=== PATIENT | female | born 1980 | race American Indian/Alaskan Native ===

== ENCOUNTER 2018-08-31 01:47 | Inpatient (IN) | payer BC ==
[~2018-08-31 01:47] MED LIST: HEPARIN 10,000 UNITS/10 ML ONE; PLAVIX ONE
[2018-08-31] MEDS ORDERED: PLAVIX PO ONE ×2 (02:02→02:04)
[2018-08-31] MEDS ORDERED: HEPARIN 10,000 UNITS/10 ML IV ONE (02:02)
--- NOTE | 2018-08-31 02:02 | Emergency Department Report ---
ED Chest Pain HPI - General Stated Complaint: CHEST PAIN Time Seen by Provider: 08/31/18 01:47 Source: patient, EMS Mode of arrival: Stretcher Limitations: No Limitations - History of Present Illness Initial Comments: Patient is a 38-year-old female that presents with complaints of chest pain. Patient states her chest is 10. Patient states he is now a 5 out of 10. Patient states she was given morphine and she took aspirin at home prior to EMS arriving. States her pain is improving. Patient states she's had 2 heart attacks in the past along with 3 stents placed. Patient states with her first heart attack she had a cardiac arrest. Patient states she was having shortness of breath diaphoresis and nausea vomiting. Patient states her chest pain was better with rest and medications and worse with exertion. STEMI team initiated prior to arrival. MD Complaint: chest pain -: Sudden Onset: during rest Pain Location: substernal, left chest Pain Radiation: none Severity scale (0 -10): 5 Improves With: rest, other Worsens With: exertion re: nausea, vomting, diaphoresis, dyspnea Other Symptoms: denies: cough, fever, syncope, rash, acid taste in mouth, leg swelling, palpitations, burping Treatments Prior to Arrival: aspirin, oxygen, other Aspirin use within the Past 7 Days: (1) Yes - Related Data On Oral Contraceptives: No Allergies Allergy/AdvReac Type Severity Reaction Status Date / Time amoxicillin Allergy Unknown Verified 08/31/18 02:16 antihistamine Allergy Shortness Uncoded 08/31/18 02:16 of Breath Heart Score - HEART Score History: Highly suspicious EKG: Significant ST-depression Age: 45-65 Risk factors: > 3 risk factors or hx of atherosclerotic disease Troponin: < normal limit HEART Score: 7 ED Review of Systems ROS: Stated complaint: CHEST PAIN Other details as noted in HPI Constitutional: diaphoresis. denies: chills, fever Eyes: denies: eye pain, eye discharge, vision change ENT: denies: ear pain, throat pain Respiratory: shortness of breath. denies: cough, wheezing Cardiovascular: chest pain. denies: palpitations Endocrine: no symptoms reported Gastrointestinal: nausea, vomiting. denies: abdominal pain, diarrhea Genitourinary: denies: urgency, dysuria, discharge Musculoskeletal: denies: back pain, joint swelling, arthralgia Skin: denies: rash, lesions Neurological: denies: headache, weakness, paresthesias Psychiatric: denies: anxiety, depression Hematological/Lymphatic: denies: easy bleeding, easy bruising ED Past Medical Hx - Past Medical History Previous Medical History?: Yes Hx Heart Attack/AMI: Yes Additional medical history: Cardiac arrest with first MN. - Surgical History Past Surgical History?: Yes Hx Coronary Stent: Yes - Family History Family history: no significant - Social History Smoking Status: Never Smoker Substance Use Type: None ED Physical Exam - General Limitations: No Limitations General appearance: alert, in no apparent distress - Head Head exam: Present: atraumatic, normocephalic - Eye Eye exam: Present: normal appearance - ENT ENT exam: Present: mucous membranes moist - Neck Neck exam: Present: normal inspection - Respiratory Respiratory exam: Present: normal lung sounds bilaterally. Absent: respiratory distress - Cardiovascular Cardiovascular Exam: Present: regular rate, normal rhythm. Absent: systolic murmur, diastolic murmur, rubs, gallop - GI/Abdominal GI/Abdominal exam: Present: soft, normal bowel sounds - Extremities Exam Extremities exam: Present: normal inspection - Back Exam Back exam: Present: normal inspection - Neurological Exam Neurological exam: Present: alert, oriented X3 - Psychiatric Psychiatric exam: Present: normal affect, normal mood - Skin Skin exam: Present: warm, dry, intact, normal color. Absent: rash ED Course Vital Signs 08/31/18 08/31/18 02:05 02:15 Pulse Rate 80 91 H Respiratory 14 14 Rate Blood Pressure 119/87 Blood Pressure 115/79 [Left] - Reevaluation(s) Reevaluation #1: Initial evaluation done. Code STEMI initiated prior to arrival and credit correspondence clerk consult. Patient's pain has improved with therapy. Patient will be given Plavix, Lipitor and heparin bolus. Patient was placed on oxygen. Patient lab labs done. 08/31/18 01:47 Reevaluation #2: Patient states her pain is 3 out of 10. 08/31/18 02:05 Reevaluation #3: Body Technician was ready and will take the patient. Patient was transported via stretcher to the Body Technician. Patient's chest pain is improving. 08/31/18 02:21 - Consultations Consultation #1: Dr. Quarles, interventional cardiology consult. EKG transmitted to Dr. Quarles via text. Dr. Quarles states to initiate STEMI team. 08/31/18 01:44 Cardiology wants to have 600 of Plavix and 6000 units of heparin bolus 08/31/18 01:55 Consultation #2: Hospitalist consult for admission. Hospitalist to admit patient and assume care of patient. 08/31/18 01:58 CONNOR score - Connor Score Age > 65: (0) No Aspirin use within the Past 7 Days: (1) Yes 3 or more CAD Risk Factors: (1) Yes 2 or more Angina events in past 24 hrs: (0) No Known CAD with more than 50% Stenosis: (0) No Elevated Cardiac Markers: (0) No ST Deviation Greater than 0.5mm: (1) Yes CONNOR Score: 3 ED Medical Decision Making - Lab Data Result diagrams: 08/31/18 01:55 08/31/18 01:55 - EKG Data -: EKG Interpreted by Ak EKG shows normal: sinus rhythm, axis, intervals, QRS complexes, ST-T waves Rate: normal - EKG Data Interpretation: acute MN - Medical Decision Making Patient is a 38-year-old female presents to emergency room with complaints of chest pain. Patient's prehospital EKG shows a STEMI and the STEMI team was initiated and interventional cardiology made aware of findings. Patient had labs sent. Patient's EKG is improved. Patient sent to the optical laboratory mechanic. Labs un remarkable except for hyperglycemia. - Differential Diagnosis STEMI. Chest pain. Critical Care Time: Yes Critical care attestation.: If time is entered above; I have spent that time in minutes in the direct care of this critically ill patient, excluding procedure time. Critical Care Time: 35 minutes ED Disposition Clinical Impression: STEMI (ST elevation myocardial infarction) Qualifiers: Involved coronary artery: unspecified coronary artery Qualified Code(s): I21.3 - ST elevation (STEMI) myocardial infarction of unspecified site Chest pain Qualifiers: Chest pain type: unspecified Qualified Code(s): R07.9 - Chest pain, unspecified Disposition: 09 OP ADMIT IP TO THIS HOSP Is pt being admited?: Yes Does the pt Need Aspirin: No Condition: Critical Time of Disposition: 02:38
[2018-08-31 02:10] LABS: Basophils # (Auto) 0.1 K/mm3 (0.0-0.1); Basophils % (Auto) 0.9 % (0.0-1.8); Eosinophils # (Auto) 0.3 K/mm3 (0.0-0.4); Eosinophils % (Auto) 2.8 % (0.0-4.3); Hematocrit 36.4 % (30.3-42.9); Hemoglobin 12.1 gm/dl (10.1-14.3); Lymphocytes # (Auto) 4.2 K/mm3 (1.2-5.4); Lymphocytes % (Auto) 46.2 % (13.4-35.0); Mean Corpuscular HGB Conc 33 % (30-34); Mean Corpuscular Volume 88 fl (79-97); Monocytes # (Auto) 0.8 K/mm3 (0.0-0.8); Monocytes % (Auto) 8.6 % (0.0-7.3); Platelet Count 306 K/mm3 (140-440); Red Blood Count 4.16 M/mm3 (3.65-5.03); Red Cell Distribution Width 13.2 % (13.2-15.2)
[2018-08-31] MEDS ORDERED: VERSED ONE (02:29)
[2018-08-31] MEDS ORDERED: ADRENALIN ONE (02:29)
[2018-08-31] MEDS ORDERED: XYLOCAINE CARDIAC IV ONE (02:29)
[2018-08-31] MEDS ORDERED: SUBLIMAZE ONE (02:29)
[2018-08-31] MEDS ORDERED: HEPARIN/NS 5000 UNIT/500ML(CATH LAB) 1,000 ML IR ONE (02:29)
[2018-08-31] MEDS ORDERED: HEPARIN 10,000 UNITS/10 ML ONE (02:29)
[2018-08-31] MEDS ORDERED: ATROPINE 0.1% (CARDIAC) ONE (02:29)
[2018-08-31] MEDS ORDERED: PHENYLEPHRINE/NS Syringe 1,000 MCG/10 ML IV ONE (02:29)
[2018-08-31 02:30] LABS: Creatine Kinase MB 1.2 ng/mL (0.0-4.0)
[2018-08-31] MEDS ORDERED: CALAN ONE (02:30)
[2018-08-31] MEDS ORDERED: XYLOCAINE 2% INFILTRATI ONE (02:30)
[2018-08-31] MEDS ORDERED: NITROGLYCERIN SYRINGE 3 ML ONE (02:31)
[2018-08-31 02:32] LABS: BUN/Creatinine Ratio 13; Blood Urea Nitrogen 13 mg/dL (7-17); Hemolysis Index 23; Partial Thromboplastin Time 23.8 Sec. (24.2-36.6)
[2018-08-31] MEDS ORDERED: NACL 0.9% 1000 ML 1,000 ML ONE (02:37)
[2018-08-31] MEDS ORDERED: EFFIENT PO ONE (03:03)
--- NOTE | 2018-08-31 03:27 | Consultation ---
CARDIOLOGY CONSULTATION REFERRING PHYSICIAN: ER physician. REASON FOR CONSULTATION: Advice regarding STEMI. HISTORY OF PRESENT ILLNESS: The patient is an exceedingly pleasant 38-year-old -[place] female with a history of multiple acute MIs/PCIs, cardiomyopathy, ICD, diabetes, hypertension, asthma and tobacco abuse, who presents here with recurrent chest pain, inferior ST elevation on EKG consistent with inferior STEMI. She has been having 10/10 chest pain, diaphoresis. No recent drug use and nondrinker. This feels similar to previous episodes. STEMI protocol is initiated. PAST MEDICAL HISTORY: As aforementioned. SOCIAL HISTORY: Positive tobacco abuse. No drugs or alcohol use. ALLERGIES: AMOXICILLIN and ANTIHISTAMINE. FAMILY HISTORY: Positive for premature heart disease. MEDICATIONS: Outpatient medications reviewed. REVIEW OF SYSTEMS: As per HPI. No diaphoresis, abdominal pain, hematochezia, melena, hemoptysis, rashes, fevers, chills, blurred vision, headache. PHYSICAL EXAMINATION: VITAL SIGNS: Blood pressure is 120/80. She is afebrile. Tele reveals sinus rhythm, heart rate in the 90s, O2 sat is 97% on 2 liters, respiratory rate 16. GENERAL: This is a young -[place] female with 10/10 chest pain, in distress. HEENT: Sclerae icteric. NECK: Supple. No mass or JVD. CHEST: Clear to auscultation bilaterally. Good air movement. CARDIOVASCULAR: Regular rate and rhythm, S1, S2. ABDOMEN: Soft, nontender, nondistended. Normoactive bowel sounds in 4 quadrants. No mass or bruits. EXTREMITIES: No cyanosis, clubbing, edema. Good peripheral pulses. SKIN: Intact. No rashes. LABORATORY AND DIAGNOSTIC DATA: EKG reveals inferior ST elevation myocardial infarction. Labs are pending. ASSESSMENT: In summary, the patient is a pleasant 38-year-old -Erit[place] female: Acute inferior ST elevation myocardial infarction in the milieu of multiple previous MIs, ischemic cardiomyopathy, ICD. STEMI protocol initiated. The patient loaded with Plavix, aspirin, heparin. Further plans contingent on cardiac catheterization results. JOB# [id number] SBM/NTS
[2018-08-31] MEDS ORDERED: LASIX ONE (03:35)
--- NOTE | 2018-08-31 04:09 | Cardiac Catherization Report ---
CARDIAC CATH INDICATION FOR PROCEDURE: The patient is a pleasant 38-year-old -Slovenian female with a history of recurrent ND, ischemic cardiomyopathy, defibrillator, who presents here with inferior ST-elevation myocardial infarction. STEMI protocol initiated. The patient loaded with heparin, aspirin and Plavix. Risks, benefits, alternatives discussed. PROCEDURE IN DETAIL: The patient was brought to the catheterization lab in a postabsorptive state, prepped and draped in sterile fashion. The patient did not have a good radial pulse, and thus, we used a groin approach. An 8 mL of 2% lidocaine was used to anesthetize the right groin. A standard 6-Wallisian hydrophilic sheath was used to cannulate the right common femoral artery via modified Seldinger technique. All exchanges performed to exchange a J-tip guidewire. JL3.5 catheter used to engage the left main. No dampening or ventricularization. Cineangiography performed in multiple projections. JR4 guide used to cross the aortic valve under fluoroscopic guidance. Left ventriculography performed in [address] projections via hand injections, catheter flushed. Manual pullback performed with continuous pressure monitoring. Catheter used to engage the right coronary. No dampening or ventricularization. Cineangiography performed in all projections. DATA: Aortic pressure is 120/80, LV pressure is 120, LVEDP of 32 mmHg. The patient remained in normal sinus rhythm throughout the procedure. CORONARY ANATOMY: This is a right dominant system. There is a 99% subtotal occlusion of the mid right coronary with CONNOR 2 flow consistent with plaque rupture. This is the culprit lesion. The left main without significant disease, bifurcates left anterior descending and left circumflex. Left circumflex is a large vessel, courses AV groove. Stent in the mid left circumflex is patent. No significant disease elsewhere in the circumflex system, diminutive to AV groove circ. LAD is a large vessel, courses anterior intergroove, wraps around the apex. There is a 40-50% mid LAD stenosis, CONNOR 3 flow, no other obstructive disease identified. Stent in the proximal LAD is patent. At this time, we turned our attention to the PCI of the culprit right coronary. Heparin given. Abnormal ACT confirmed. Plavix, aspirin already given. We used a Trellise wire to cross the lesion without difficulty, predilated with a 2.5 x 12 balloon, stented with a 3.0 x 26 [place] drug-eluting stent. Excellent angiographic result. Intravascular ultrasound is performed. Multiple passes were made, reveals a well-opposed, well expanded stent. Intracoronary nitroglycerin was given. Excellent final angiographic result, 0 residual stenosis, CONNOR 3 flow, no complications noted. The patient is feeling much better, chest pain free. EKG changes are resolved. I directly supervised administration of moderate sedation from 2:40 to 3:25 a.m. with fentanyl and Versed. CONCLUSIONS: 1. Acute atherothrombotic subtotal occlusion of mid right coronary in the milieu of an inferior ST-elevation myocardial infarction. A successful IVUS guided PCI with placement of drug-eluting stent ([place] 3.0 x 26) with excellent final angiographic and ultrasonographic results. 2. Patent stent in the LAD with a 40-50% mid LAD stenosis. 3. Patent stent in the mid left circumflex without significant disease. Patent left main. 4. Left ventriculography reveals anterolateral dyskinesis. Ejection fraction approximately 35%, mildly elevated LVP. No evidence of aortic stenosis. At this point, the patient is clinically significantly improved. We will load with Effient. The patient has had STEMI, is on Plavix and apparently Brilinta. We will load with Effient at this point. Pull sheath once ACT less than 170. Check an echocardiogram. Aspirin, Effient, statin. We will hold off on beta blockade or MERRICK inhibition at this poin. We will consider reinitiating Lasix. The patient is clinically stable to be transferred to the ICU. Results of the procedure explained to the patient and family. JOB# [id number] SBM/NTS
[2018-08-31 06:06] LABS: Creatine Kinase MB 6.7 ng/mL (0.0-4.0)
[2018-08-31 06:49] LABS: Chol/HDL Ratio 3.31 %
[2018-08-31 08:47] LABS: Creatine Kinase MB 16.8 ng/mL (0.0-4.0)
[2018-08-31] MEDS: ECOTRIN PO SCH (09:40)
--- NOTE | 2018-08-31 09:51 | Consultation ---
History of Present Illness Consult date: 08/31/18 Requesting physician: CHINMAY VALIENTE Reason for consult: other (STEMI) History of present illness: PULMONARY/CCM CONSULT NOTE (Full dictation # [id number]) Please see dictated notes for full details Medications and Allergies Allergies Allergy/AdvReac Type Severity Reaction Status Date / Time amoxicillin Allergy Unknown Verified 08/31/18 02:16 antihistamine Allergy Shortness Uncoded 08/31/18 02:16 of Breath Home Medications Medication Instructions Recorded Confirmed Last Taken Type Atorvastatin [Lipitor Tab] 80 mg PO QHS 08/31/18 08/31/18 08/29/18 History Carvedilol [Coreg] 6.25 mg PO BID 08/31/18 08/31/18 08/30/18 History Cyclobenzaprine [Flexeril] 20 mg PO DAILY 08/31/18 08/31/18 08/29/18 History Duloxetine HCl [Cymbalta] 60 mg PO DAILY 08/31/18 08/31/18 08/30/18 11:00 History Furosemide [Lasix TAB] 40 mg PO QDAY 08/31/18 08/31/18 08/30/18 History Gabapentin 300 mg PO DAILY 08/31/18 08/31/18 08/29/18 06:00 History Insulin Glargine/Lixisenatide 48 units SC DAILY 08/31/18 08/31/18 08/30/18 History [Soliqua 100 Unit-33 Mcg/ml Pen] Lispro Insulin [HumaLOG] 1 unit SQ BID 08/31/18 08/31/18 Unknown History Potassium Chloride [Klor-Con 8] 10 meq PO DAILY 08/31/18 08/31/18 08/30/18 History Sacubitril/Valsartan [Entresto 1 each PO BID 08/31/18 08/31/18 08/30/18 History 49-51 mg] Spironolactone [Aldactone] 25 tab PO ONCE 08/31/18 08/31/18 08/30/18 History Ticagrelor [Brilinta] 90 mg PO BID 08/31/18 08/31/18 08/30/18 History traMADol [Ultram] 50 mg PO ONCE 08/31/18 08/31/18 08/29/18 10:00 History Active Meds: Active Medications Aspirin (Ecotrin) 325 mg PO QDAY [facility] Last Admin: 08/31/18 09:40 Dose: 325 mg Documented by: Atorvastatin Calcium (Lipitor) 80 mg PO QHS [facility] Prasugrel (Effient) 10 mg PO QDAY [facility] Physical Examination Vital signs: Vital Signs Pulse Resp BP 80 14 119/87 08/31/18 02:05 08/31/18 02:05 08/31/18 02:05 Results - Laboratory Findings CBC and BMP: 08/31/18 01:55 08/31/18 01:55 PT/INR, D-dimer PT 12.9 Sec. (12.2-14.9) 08/31/18 01:55 INR 1.00 (0.87-1.13) 08/31/18 01:55 Abnormal lab findings: Abnormal Labs 08/31/18 08/31/18 08/31/18 01:55 01:55 01:55 Lymph % (Auto) 46.2 H [place] % (Auto) 8.6 H APTT 23.8 L Activated Clotting Time Glucose 318 H Total Creatine Kinase 140 H CK-MB (CK-2) CK-MB (CK-2) Rel Index Troponin T HDL Cholesterol 08/31/18 08/31/18 08/31/18 04:27 04:50 05:29 Lymph % (Auto) [place] % (Auto) APTT Activated Clotting Time 197 H 164 H Glucose Total Creatine Kinase 236 H CK-MB (CK-2) 6.7 H CK-MB (CK-2) Rel Index Troponin T 0.057 H D HDL Cholesterol 38 L 08/31/18 08:05 Lymph % (Auto) [place] % (Auto) APTT Activated Clotting Time Glucose Total Creatine Kinase 259 H CK-MB (CK-2) 16.8 H CK-MB (CK-2) Rel Index 6.4 H Troponin T 0.201 H* D HDL Cholesterol
--- NOTE | 2018-08-31 11:25 | Progress Note ---
Assessment and Plan 38yo aaf: 1. Acute inferior STEMI * s/p primary pci of mid-RCA with donovan 2. H/o of multiple MIs/PCIs 3. Known h/o ischemic CM * s/p icd 4. Htn 5. DM 6. Tobacco abuse Clinically vastly improved No complaints RFA site looks good cont w/ dapt consider adding low dose bb/berry in am (soft bp) OOB--> chair smoking cessation d/w pt at length consult hospitalist for DM control - Patient Problems (1) STEMI (ST elevation myocardial infarction) Current Visit: Yes Status: Acute Qualifiers: Involved coronary artery: unspecified coronary artery Qualified Code(s): I21.3 - ST elevation (STEMI) myocardial infarction of unspecified site Subjective Date of service: 08/31/18 Interval history: feels well no complaints Objective Vital Signs Temp Pulse Pulse Pulse Pulse Resp BP 08/31/18 10:20 87 13 111/67 08/31/18 10:10 84 11 L 100/63 08/31/18 10:00 83 13 100/63 08/31/18 09:50 89 15 83/54 08/31/18 09:40 90 19 103/62 08/31/18 09:30 94 H 20 103/62 08/31/18 09:20 87 19 96/59 08/31/18 09:10 89 16 103/58 08/31/18 09:00 88 13 103/58 08/31/18 08:53 87 85 15 08/31/18 08:50 93 H 12 100/64 08/31/18 08:40 99 H 14 110/59 08/31/18 08:30 97 H 20 110/59 08/31/18 08:20 93 H 18 103/67 08/31/18 08:10 88 16 98/63 08/31/18 08:09 08/31/18 08:00 97.6 F 85 88 15 98/63 08/31/18 07:50 89 14 107/68 08/31/18 07:40 93 H 13 109/67 08/31/18 07:30 87 16 126/66 08/31/18 07:20 89 16 119/69 08/31/18 07:10 91 H 16 102/71 08/31/18 07:00 86 17 97/67 08/31/18 06:50 88 16 99/72 08/31/18 06:40 85 20 100/61 08/31/18 06:30 85 17 103/70 08/31/18 06:20 88 15 87/63 08/31/18 06:10 92 H 17 101/70 08/31/18 06:00 85 15 96/60 08/31/18 05:50 90 17 104/64 08/31/18 05:40 93 H 18 88/52 08/31/18 05:30 96 H 17 92/51 08/31/18 05:20 95 H 16 92/51 08/31/18 05:10 99 H 14 92/51 08/31/18 05:00 95 H 14 92/51 08/31/18 04:50 91 H 13 104/62 08/31/18 04:40 88 13 104/62 08/31/18 04:30 92 H 11 L 08/31/18 04:20 98 H 15 08/31/18 04:10 86 9 L 08/31/18 04:05 08/31/18 04:00 100 H 100 H 12 08/31/18 02:15 91 H 14 08/31/18 02:05 80 14 119/87 BP Pulse Ox 08/31/18 10:20 99 08/31/18 10:10 91 08/31/18 10:00 97 08/31/18 09:50 95 08/31/18 09:40 96 08/31/18 09:30 08/31/18 09:20 100 08/31/18 09:10 100 08/31/18 09:00 100 08/31/18 08:53 100 08/31/18 08:50 08/31/18 08:40 100 08/31/18 08:30 100 08/31/18 08:20 96 08/31/18 08:10 75 L 08/31/18 08:09 100 08/31/18 08:00 99 08/31/18 07:50 100 08/31/18 07:40 100 08/31/18 07:30 08/31/18 07:20 08/31/18 07:10 08/31/18 07:00 08/31/18 06:50 08/31/18 06:40 08/31/18 06:30 100 08/31/18 06:20 88 08/31/18 06:10 07/27/19 06:00 100 08/31/18 05:50 100 08/31/18 05:40 100 08/31/18 05:30 82 L 08/31/18 05:20 100 08/31/18 05:10 100 08/31/18 05:00 100 08/31/18 04:50 76 L 08/31/18 04:40 87 08/31/18 04:30 89 08/31/18 04:20 08/31/18 04:10 08/31/18 04:05 94 08/31/18 04:00 100 08/31/18 02:15 115/79 08/31/18 02:05 - Labs and Meds Cardiac Enzymes 08/31/18 08/31/18 08/31/18 Range/Units 01:55 04:50 08:05 CK-MB (CK-2) 1.2 6.7 H 16.8 H (0.0-4.0) ng/mL Coagulation 08/31/18 Range/Units 01:55 PT 12.9 (12.2-14.9) Sec. INR 1.00 (0.87-1.13) APTT 23.8 L (24.2-36.6) Sec. Lipids 08/31/18 Range/Units 04:50 Triglycerides 67 (2-149) mg/dL Cholesterol 126 (50-199) mg/dL HDL Cholesterol 38 L (40-59) mg/dL Cholesterol/HDL Ratio 3.31 % CBC 08/31/18 Range/Units 01:55 WBC 9.2 (4.5-11.0) K/mm3 RBC 4.16 (3.65-5.03) M/mm3 Hgb 12.1 (10.1-14.3) gm/dl Hct 36.4 (30.3-42.9) % Plt Count 306 (140-440) K/mm3 Lymph # 4.2 (1.2-5.4) K/mm3 Ness # 0.8 (0.0-0.8) K/mm3 Eos # 0.3 (0.0-0.4) K/mm3 Baso # 0.1 (0.0-0.1) K/mm3 Comprehensive Metabolic Panel 08/31/18 Range/Units 01:55 Sodium 138 (137-145) mmol/L Potassium 3.6 (3.6-5.0) mmol/L Chloride 102.2 (98-107) mmol/L Carbon Dioxide 22 (22-30) mmol/L BUN 13 (7-17) mg/dL Creatinine 1.0 (0.7-1.2) mg/dL Glucose 318 H (65-100) mg/dL Calcium 9.0 (8.4-10.2) mg/dL
[2018-08-31] MEDS ORDERED: EFFIENT PO NR (12:00)
[2018-08-31] MEDS ORDERED: D50W (25GM) Syringe IV PRN ×2 (12:12→13:00)
[2018-08-31] MEDS: PEPCID PO SCH (12:33)
--- NOTE | 2018-08-31 12:59 | Consultation ---
History of Present Illness - Reason for Consult Consult date: 08/31/18 diabetes Requesting physician: CHINMAY VALIENTE - History of Present Illness 38 YO Female admitted for STEMI consult placed by Dr. Valiente for management of Diabetes. Pt seen and evaluated in her room. Pt denies fever, chills, polyuria, polydipsia,polyphagia, nausea, vomiting, skin rash, or known ill contacts. No reported nursing events. Pt tolerating diet. Past History Past Medical History: acute [place], CAD, diabetes, hypertension Past Surgical History: Other (Stent placement) Social history: single Family history: CAD, diabetes, hypertension Medications and Allergies Allergies Allergy/AdvReac Type Severity Reaction Status Date / Time amoxicillin Allergy Unknown Verified 08/31/18 02:16 antihistamine Allergy Shortness Uncoded 08/31/18 02:16 of Breath Home Medications Medication Instructions Recorded Confirmed Last Taken Type Atorvastatin [Lipitor Tab] 80 mg PO QHS 08/31/18 08/31/18 08/29/18 History Carvedilol [Coreg] 6.25 mg PO BID 08/31/18 08/31/18 08/30/18 History Cyclobenzaprine [Flexeril] 20 mg PO DAILY 08/31/18 08/31/18 08/29/18 History Duloxetine HCl [Cymbalta] 60 mg PO DAILY 08/31/18 08/31/18 08/30/18 11:00 History Furosemide [Lasix TAB] 40 mg PO QDAY 08/31/18 08/31/18 08/30/18 History Gabapentin 300 mg PO DAILY 08/31/18 08/31/18 08/29/18 06:00 History Insulin Glargine/Lixisenatide 48 units SC DAILY 08/31/18 08/31/18 08/30/18 History [Soliqua 100 Unit-33 Mcg/ml Pen] Lispro Insulin [HumaLOG] 1 unit SQ BID 08/31/18 08/31/18 Unknown History Potassium Chloride [Klor-Con 8] 10 meq PO DAILY 08/31/18 08/31/18 08/30/18 History Sacubitril/Valsartan [Entresto 1 each PO BID 08/31/18 08/31/18 08/30/18 History 49-51 mg] Spironolactone [Aldactone] 25 tab PO ONCE 08/31/18 08/31/18 08/30/18 History Ticagrelor [Brilinta] 90 mg PO BID 08/31/18 08/31/18 08/30/18 History traMADol [Ultram] 50 mg PO ONCE 08/31/18 08/31/18 08/29/18 10:00 History Active Meds: Active Medications Aspirin (Ecotrin) 325 mg PO QDAY [facility] Last Admin: 08/31/18 09:40 Dose: 325 mg Documented by: Atorvastatin Calcium (Lipitor) 80 mg PO QHS [facility] Dextrose (D50w (25gm) Syringe) 50 ml IV PRN PRN PRN Reason: Hypoglycemia Enoxaparin Sodium (Lovenox) 40 mg SUB-Q QDAY@2200 [facility]OU[facility] Famotidine (Pepcid) 20 mg PO QDAY [facility] Last Admin: 08/31/18 12:33 Dose: 20 mg Documented by: Insulin Human Regular (Humulin R) 0 units SUB-Q [facility]; Protocol Prasugrel (Effient) 10 mg PO QDAY [facility] Prasugrel (Effient) 10 mg PO ONCE NR Stop: 08/31/18 13:00 Last Admin: 08/31/18 12:33 Dose: 10 mg Documented by: Exam - Constitutional Vitals: Temp Pulse Resp BP Pulse Ox 97.7 F 88 22 112/74 84 08/31/18 12:13 08/31/18 12:40 08/31/18 12:40 08/31/18 12:40 08/31/18 12:24 General appearance: Present: no acute distress, obese - EENT Eyes: Present: PERRL ENT: hearing intact, clear oral mucosa - Neck Neck: Present: supple, normal ROM - Respiratory Respiratory effort: normal Respiratory: bilateral: CTA - Cardiovascular Heart Sounds: Present: S1 & S2. Absent: rub, click - Extremities Extremities: pulses symmetrical, No edema Peripheral Pulses: within normal limits - Abdominal General gastrointestinal: Present: soft, non-tender, non-distended, normal bowel sounds Female genitourinary: Present: normal - Integumentary Integumentary: Present: clear, warm, dry - Musculoskeletal Musculoskeletal: gait normal, strength equal bilaterally - Psychiatric Psychiatric: appropriate mood/affect, intact judgment & insight - Neurologic Neurologic: CNII-XII intact, moves all extremities Results - Labs CBC & Chem 7: 09/01/18 03:41 09/01/18 03:41 Labs: Abnormal lab results 08/31/18 08/31/18 08/31/18 Range/Units 01:55 01:55 01:55 Lymph % (Auto) 46.2 H (13.4-35.0) % [place] % (Auto) 8.6 H (0.0-7.3) % APTT 23.8 L (24.2-36.6) Sec. Activated Clotting Time (74-137) Glucose 318 H (65-100) mg/dL Total Creatine Kinase 140 H (30-135) units/L CK-MB (CK-2) (0.0-4.0) ng/mL CK-MB (CK-2) Rel Index (0-4) Troponin T (0.00-0.029) ng/mL HDL Cholesterol (40-59) mg/dL 08/31/18 08/31/18 08/31/18 Range/Units 04:27 04:50 05:29 Lymph % (Auto) (13.4-35.0) % [place] % (Auto) (0.0-7.3) % APTT (24.2-36.6) Sec. Activated Clotting Time 197 H 164 H (74-137) Glucose (65-100) mg/dL Total Creatine Kinase 236 H (30-135) units/L CK-MB (CK-2) 6.7 H (0.0-4.0) ng/mL CK-MB (CK-2) Rel Index (0-4) Troponin T 0.057 H D (0.00-0.029) ng/mL HDL Cholesterol 38 L (40-59) mg/dL 08/31/18 Range/Units 08:05 Lymph % (Auto) (13.4-35.0) % [place] % (Auto) (0.0-7.3) % APTT (24.2-36.6) Sec. Activated Clotting Time (74-137) Glucose (65-100) mg/dL Total Creatine Kinase 259 H (30-135) units/L CK-MB (CK-2) 16.8 H (0.0-4.0) ng/mL CK-MB (CK-2) Rel Index 6.4 H (0-4) Troponin T 0.201 H* D (0.00-0.029) ng/mL HDL Cholesterol (40-59) mg/dL Assessment and Plan - Patient Problems (1) Diabetes Current Visit: Yes Status: Acute Plan to address problem: ADA diet, sliding scale insulin, Lantus 10Units QHS, Hypoglycemia protocol.
[2018-08-31 16:27] LABS: Hematocrit 34.8 % (30.3-42.9); Hemoglobin 11.6 gm/dl (10.1-14.3); Mean Corpuscular HGB Conc 34 % (30-34); Mean Corpuscular Volume 87 fl (79-97); Platelet Count 292 K/mm3 (140-440); Red Blood Count 3.99 M/mm3 (3.65-5.03); Red Cell Distribution Width 13.5 % (13.2-15.2)
[2018-08-31 16:53] LABS: Alanine Aminotransferase 16 units/L (7-56); Albumin 3.6 g/dL (3.9-5); BUN/Creatinine Ratio 15; Blood Urea Nitrogen 12 mg/dL (7-17); Calcium 8.6 mg/dL (8.4-10.2); Hemolysis Index 0
[2018-08-31] MEDS: HumuLIN R SUB-Q SCH ×2 (17:32→22:47)
[2018-08-31] MEDS ORDERED: LOVENOX SUB-Q SCH (22:00)
[2018-08-31] MEDS: LANTUS SUB-Q SCH (22:00)
--- NOTE | 2018-09-01 03:57 | XRay Report ---
CHEST 1 VIEW INDICATION / CLINICAL INFORMATION: post pci. COMPARISON: None available. FINDINGS: SUPPORT DEVICES: Left-sided pacemaker HEART / MEDIASTINUM: No significant abnormality. LUNGS / PLEURA: No significant pulmonary or pleural abnormality. No pneumothorax. ADDITIONAL FINDINGS: No significant additional findings. IMPRESSION: No acute pulmonary or pleural abnormality. Signer Name: Mitchell Coronel MD FACR Signed: 09/01/2018 3:52 AM Workstation Name: [id number]
--- NOTE | 2018-09-01 04:12 | Consultation ---
PULMONARY CRITICAL CARE CONSULTATION. CONSULTING PHYSICIAN: Dr. Robe Quarles REASON FOR CONSULTATION: ST elevation GA, acute hypoxemic respiratory failure. CHIEF COMPLAINT AND HISTORY OF PRESENT ILLNESS: The patient is a 38-year-old -F[place]ian female with past medical history indeed significant according to her for a cardiomyopathy for which she has AICD implanted, came into the Emergency Room yesterday complaining of chest pain. The chest pain was a 10/10. She was given some morphine, took some aspirin at home prior to EMS arriving. Her pain was getting better. She did have a history of prior stent placement and has had a cardiac arrest on initial presentation with coronary artery disease. She was having some nausea and vomiting and having some diaphoresis. She was evaluated in the Emergency Room. Her prehospital EKG showed an ST elevation GA and the STEMI team was called. She was taken into the laboratory machinist. They found an acute atherothrombotic subtotal occlusion of the mid right coronary artery in the milieu of an inferior ST elevation myocardial infarction. A stent was placed, drug-eluting stent. She also had a stent in the LAD with a 40-50% mid LAD stenosis. LV ejection fraction was measured at 35%. Post-procedure, she was loaded with Effient. She is already on Plavix and Brilinta at home and she was transferred to the Intensive Care Unit where I stopped by to see her. When I stopped by to see her, she remained on supplemental oxygen, was feeling better, was chest pain free at that time. She did admit to a history of nonrestorative sleep. She is obese, but has never had any evaluation for sleep apnea. Now with regard to tobacco use/abuse history, she describes herself as a never smoker. This really is as much of the history of presentation as I have. PAST MEDICAL HISTORY: History of coronary artery disease, history of being morbidly obese, history of diabetes. PAST SURGICAL HISTORY: Stent placement. MEDICATIONS: She was on at the time I stopped by to see her were reviewed, pertinent medications include the following: Aspirin 325 mg p.o. daily; Lipitor 80 mg p.o. at bedtime; Effient 10 mg p.o., she received a one-time dose and is now scheduled on 10 mg p.o. daily. ALLERGIES: AMOXICILLIN and ANTIHISTAMINES, nature of this allergy is unknown. DIET: Morbidly obese. Denies acute weight loss or gain in the preceding few weeks to months. FAMILY AND SOCIAL HISTORY: Lives in the community. Denies current alcohol, tobacco, or illicit drug use or abuse. Family history is significant she tells me for multiple people with sleep apnea. Otherwise, denies a history of coronary artery disease. REVIEW OF SYSTEMS: No loss of consciousness. No new onset seizures. No new onset focal weakness. No gross hematochezia or melena. No gross hematuria or dysuria. She had emesis. No hematemesis. She had some nausea, no palpitations. She had the chest pain. She denies polydipsia, polyuria. Denies heat or cold intolerance. She admits to nonrestorative sleep. Complete 13-system review of systems obtained. Pertinent positives and/or negatives as in body of history above, otherwise noncontributory. PHYSICAL EXAMINATION: VITAL SIGNS: At initial presentation, first temperature was 97.6. At presentation, pulse was 91, respiratory rate 14, blood pressure 115/79, O2 sats 100%, inspired oxygen concentration at that time was not recorded. When I stopped by to see her, O2 sats were 99% that was on 2 liters nasal cannula. GENERAL: She is a young looking, morbidly obese -Fijian female. Normocephalic, atraumatic, talking to me with partially interrupted sentences and with mildly increased respiratory effort at rest. HEAD, EYES, EARS, NOSE AND THROAT: She is anicteric. No conjunctival erythema. Oropharynx is moist. Mallampati #3 oropharynx. NECK: No gross jugular venous distention, no thyromegaly. She does have a large neck circumference. Grossly, there were no palpable lymph nodes in the supraclavicular or submandibular lymph node chains. LUNGS: Auscultation of both lung yepez unremarkable. Lungs are clear bilaterally. HEART: Heart sounds 1 and 2 are heard. They were regular in rate and rhythm at the time of my evaluation without overt rubs or murmurs. ABDOMEN: Soft, full, protuberant. Bowel sounds are positive, nontender, no palpable hepatosplenomegaly. EXTREMITIES: Without overt digital clubbing, cyanosis, no pedal edema. She does have a wound dressing at the cardiac catheterization entrance site. Pedal pulses are palpable bilaterally and strong. NEUROLOGIC: Pupils are equal and round, about 4 mm, reactive to light. Extraocular muscle movements are intact. She moves all 4 extremities spontaneously. The skin is of normal turgor without overt cellulitis or rash. Her mood was normal, affect was appropriate. LABORATORY DATA: From my review, white cell count 9200, hemoglobin 12.1, hematocrit 36.4, platelet count 306. INR 1.00. Serum sodium was 138, potassium 3.6, chloride 102, bicarbonate 22, BUN 13, creatinine 1.0. Glucose was 318. CPK was 140. LDL was actually 38 at presentation. No microbiology studies. No radiographic studies for my review. ASSESSMENT: 1. Acute ST-elevation myocardial infarction. 2. Morbid obesity, likely obstructive sleep apnea. 3. History of diabetes. 4. Tobacco use disorder. PLAN: I have spoken with her and strongly counseled her to please stop smoking cigars also. She tells me that indeed she has a 5+ pack year tobacco smoking history, quit smoking cigarettes for about a couple of years, but went back to smoking cigars and tries to not smoke too many a day. I have explained to her that she needs to quit all tobacco products completely. I have explained to her really forcefully that if anybody needs to quit, she is the one. She has had multiple heart attacks and is at high risk for further episodes. She promises to quit. Assistance has also been offered her. Otherwise, we will continue antiplatelet therapy and post-catheterization management and post drug-eluting stent management. I will put her on gastrointestinal prophylaxis also. DVT prophylaxis will also be ordered if okay with the touch up worker. A hospitalist consult has been placed to assist with diabetes management. I will put her on sliding scale insulin before every meal and at bedtime in the meantime. I have advised weight loss. I have also strongly advised Sleep Clinic evaluation. Flu and pneumonia vaccination will be addressed per protocol. Thank you very much for the consult, Dr. Quarles. I have discussed the case with the touch up worker and considering her disease process and the amount of disease burden that she has, we will observe her in the Intensive Care Unit overnight. Again, she is critically ill. She is at high risk of decompensation including the risk of from cardiopulmonary system deterioration. At this time, I spent about 35 minutes of critical care time without overlap and excluding any procedural time that may be necessary. JOB# [id number] EDER/HOMERO ROWAN
[2018-09-01 04:40] LABS: Basophils % (Auto) 0.4 % (0.0-1.8); Eosinophils # (Auto) 0.2 K/mm3 (0.0-0.4); Eosinophils % (Auto) 3.1 % (0.0-4.3); Hematocrit 34.1 % (30.3-42.9); Hemoglobin 11.2 gm/dl (10.1-14.3); Lymphocytes # (Auto) 2.2 K/mm3 (1.2-5.4); Lymphocytes % (Auto) 38.3 % (13.4-35.0); Mean Corpuscular HGB Conc 33 % (30-34); Mean Corpuscular Volume 87 fl (79-97); Monocytes # (Auto) 0.5 K/mm3 (0.0-0.8); Monocytes % (Auto) 9.3 % (0.0-7.3); Platelet Count 288 K/mm3 (140-440); Red Blood Count 3.92 M/mm3 (3.65-5.03); Red Cell Distribution Width 13.3 % (13.2-15.2)
[2018-09-01 04:56] LABS: Creatine Kinase MB 19.8 ng/mL (0.0-4.0)
[2018-09-01 04:58] LABS: BUN/Creatinine Ratio 14; Blood Urea Nitrogen 10 mg/dL (7-17); Calcium 8.7 mg/dL (8.4-10.2); Hemolysis Index 15
[2018-09-01] MEDS: HumuLIN R SUB-Q SCH ×4 (08:10→22:11)
--- NOTE | 2018-09-01 09:33 | Progress Note ---
Assessment and Plan 38yo aaf: 1. Acute inferior STEMI * s/p primary pci of mid-RCA with donovan 2. H/o of multiple MIs/PCIs 3. Known h/o ischemic CM * s/p icd 4. Htn 5. DM 6. Tobacco abuse Clinically vastly improved No complaints RFA site looks good cont w/ dapt BP still soft - hold bb/berry for now smoking cessation d/w pt at length ok to transfer to [facility] am dc - Patient Problems (1) STEMI (ST elevation myocardial infarction) Current Visit: Yes Status: Acute Qualifiers: Involved coronary artery: unspecified coronary artery Qualified Code(s): I21.3 - ST elevation (STEMI) myocardial infarction of unspecified site Subjective Interval history: feels well no complaints Objective Vital Signs Temp Pulse Pulse Resp BP Pulse Ox 09/01/18 09:09 100 09/01/18 07:56 98.3 F 09/01/18 07:00 89 15 104/59 100 09/01/18 06:50 98 H 18 108/65 100 09/01/18 06:40 95 H 17 108/65 100 09/01/18 06:30 103 H 16 108/65 99 09/01/18 06:20 94 H 20 108/65 100 09/01/18 06:10 91 H 18 108/65 100 09/01/18 06:00 94 H 94 H 18 132/82 100 09/01/18 05:50 89 17 132/82 100 09/01/18 05:40 91 H 19 132/82 100 09/01/18 05:30 91 H 19 132/82 100 09/01/18 05:20 88 18 132/82 100 09/01/18 05:10 88 18 132/82 100 09/01/18 05:00 93 H 21 132/82 100 09/01/18 04:50 95 H 19 123/79 100 09/01/18 04:40 97 H 17 123/79 100 09/01/18 04:30 87 19 123/79 100 09/01/18 04:20 87 18 123/79 100 09/01/18 04:10 87 19 123/79 100 09/01/18 04:00 85 85 17 123/79 100 09/01/18 03:54 98.0 F 09/01/18 03:50 83 19 125/81 100 09/01/18 03:40 86 18 125/81 100 09/01/18 03:30 86 18 125/81 100 09/01/18 03:20 91 H 19 125/81 100 09/01/18 03:10 86 18 125/81 100 09/01/18 03:00 85 17 125/81 100 09/01/18 02:50 85 25 H 115/65 100 09/01/18 02:40 96 H 18 115/65 100 09/01/18 02:30 90 21 115/65 100 09/01/18 02:20 95 H 13 115/65 100 09/01/18 02:10 96 H 17 115/65 100 09/01/18 02:00 89 89 17 115/65 100 09/01/18 01:50 95 H 14 121/64 100 09/01/18 01:40 90 18 121/64 100 09/01/18 01:30 93 H 18 121/64 100 09/01/18 01:20 90 16 121/64 100 09/01/18 01:10 89 21 121/64 100 09/01/18 01:00 85 19 111/60 97 09/01/18 00:50 86 18 111/60 99 09/01/18 00:40 84 19 111/60 99 09/01/18 00:30 82 17 111/60 99 09/01/18 00:20 78 14 111/60 99 09/01/18 00:10 82 17 131/64 100 09/01/18 00:00 78 78 22 131/64 100 08/31/18 23:50 100 H 19 111/60 100 08/31/18 23:49 97.8 F 08/31/18 23:40 82 14 111/60 100 08/31/18 23:30 87 16 111/60 100 08/31/18 23:20 87 21 111/60 100 08/31/18 23:10 84 16 111/60 100 08/31/18 23:00 78 15 111/60 100 08/31/18 22:50 88 14 105/62 100 08/31/18 22:40 91 H 15 105/62 100 08/31/18 22:30 87 21 105/62 100 08/31/18 22:20 87 18 105/62 100 08/31/18 22:10 88 17 105/62 100 08/31/18 22:00 91 H 91 H 16 120/77 100 08/31/18 21:50 89 14 120/77 100 08/31/18 21:40 86 15 120/77 100 08/31/18 21:32 89 15 120/77 100 08/31/18 21:30 90 17 120/77 100 08/31/18 21:20 92 H 17 120/77 100 08/31/18 21:10 90 14 120/77 100 08/31/18 21:00 90 16 120/77 99 08/31/18 20:50 96 H 19 109/67 100 08/31/18 20:40 89 18 109/67 100 08/31/18 20:30 89 19 109/67 100 08/31/18 20:20 89 25 H 109/67 100 08/31/18 20:10 91 H 40 H 110/64 100 08/31/18 20:00 98.1 F 92 H 92 H 17 109/67 100 08/31/18 19:50 93 H 22 109/67 100 08/31/18 19:40 93 H 33 H 109/67 100 08/31/18 19:30 95 H 28 H 109/67 100 08/31/18 19:20 94 H 26 H 109/67 100 08/31/18 19:10 94 H 20 109/67 100 08/31/18 19:00 93 H 17 109/67 100 08/31/18 18:50 89 19 104/53 100 08/31/18 18:40 94 H 10 L 104/53 100 08/31/18 18:30 98 H 17 104/53 100 08/31/18 18:20 100 H 15 104/53 100 08/31/18 18:10 100 H 24 104/53 100 08/31/18 18:00 93 H 18 104/53 100 08/31/18 17:50 93 H 16 102/70 97 08/31/18 17:40 100 H 26 H 102/70 86 08/31/18 17:30 94 H 19 102/70 99 08/31/18 17:20 84 13 102/70 100 08/31/18 17:10 87 11 L 102/70 100 08/31/18 17:00 89 12 101/66 100 08/31/18 16:50 88 9 L 117/79 100 07/27/19 16:40 87 17 117/79 98 08/31/18 16:30 90 13 117/79 100 08/31/18 16:20 87 12 117/79 100 08/31/18 16:10 88 13 117/79 100 08/31/18 16:00 98.0 F 94 H 89 14 103/67 100 08/31/18 15:53 98 F 08/31/18 15:50 86 11 L 103/67 94 08/31/18 15:40 97 H 20 117/79 08/31/18 15:30 97 H 29 H 117/79 08/31/18 15:20 87 14 109/72 08/31/18 15:10 85 18 111/68 86 08/31/18 15:00 90 28 H 111/68 100 08/31/18 14:50 103 H 19 122/80 100 08/31/18 14:40 83 13 96/64 94 08/31/18 14:30 85 15 96/64 94 08/31/18 14:20 89 14 110/74 86 08/31/18 14:10 87 17 103/60 89 08/31/18 14:00 88 18 96/66 83 L 08/31/18 13:50 88 18 99/64 77 L 08/31/18 13:40 90 13 121/76 08/31/18 13:30 89 14 103/60 96 08/31/18 13:20 97 H 20 121/76 94 08/31/18 13:10 95 H 18 128/79 100 08/31/18 13:00 93 H 18 111/72 99 08/31/18 12:50 94 H 16 109/71 100 08/31/18 12:40 88 22 112/74 08/31/18 12:32 95 H 18 112/74 08/31/18 12:24 128/79 84 08/31/18 12:15 87 14 100 08/31/18 12:13 97.7 F 08/31/18 12:11 123/65 100 08/31/18 12:00 97.7 F 85 13 110/65 100 08/31/18 11:50 100 H 18 106/71 100 08/31/18 11:40 89 17 110/65 100 08/31/18 11:30 89 16 110/65 100 08/31/18 11:20 90 24 107/69 100 08/31/18 11:10 93 H 17 115/73 100 08/31/18 11:00 91 H 22 115/73 100 08/31/18 10:50 89 15 114/79 100 08/31/18 10:40 93 H 18 111/72 100 08/31/18 10:30 104 H 21 111/72 97 08/31/18 10:20 87 13 111/67 99 08/31/18 10:10 84 11 L 100/63 91 08/31/18 10:00 83 13 100/63 97 08/31/18 09:50 89 15 83/54 95 08/31/18 09:40 90 19 103/62 96 - Labs and Meds Cardiac Enzymes 08/31/18 09/01/18 Range/Units 16:07 03:41 AST 35 (5-40) units/L CK-MB (CK-2) 19.8 H (0.0-4.0) ng/mL CBC 08/31/18 09/01/18 Range/Units 16:07 03:41 WBC 6.7 5.8 (4.5-11.0) K/mm3 RBC 3.99 3.92 (3.65-5.03) M/mm3 Hgb 11.6 11.2 (10.1-14.3) gm/dl Hct 34.8 34.1 (30.3-42.9) % Plt Count 292 288 (140-440) K/mm3 Lymph # 2.2 (1.2-5.4) K/mm3 Wells # 0.5 (0.0-0.8) K/mm3 Eos # 0.2 (0.0-0.4) K/mm3 Baso # 0.0 (0.0-0.1) K/mm3 Comprehensive Metabolic Panel 08/31/18 09/01/18 Range/Units 16:07 03:41 Sodium 138 139 (137-145) mmol/L Potassium 4.1 3.8 (3.6-5.0) mmol/L Chloride 101.6 103.9 (98-107) mmol/L Carbon Dioxide 27 26 (22-30) mmol/L BUN 12 10 (7-17) mg/dL Creatinine 0.8 0.7 (0.7-1.2) mg/dL Glucose 255 H 121 H (65-100) mg/dL Calcium 8.6 8.7 (8.4-10.2) mg/dL AST 35 (5-40) units/L ALT 16 (7-56) units/L Alkaline Phosphatase 100 (35-129) units/L Total Protein 6.8 (6.3-8.2) g/dL Albumin 3.6 L (3.9-5) g/dL
[2018-09-01] MEDS: PEPCID PO SCH (10:06)
[2018-09-01] MEDS: EFFIENT PO SCH (10:06)
[2018-09-01] MEDS: ECOTRIN PO SCH (10:06)
--- NOTE | 2018-09-01 13:06 | Progress Note ---
Assessment and Plan - Patient Problems (1) STEMI (ST elevation myocardial infarction) Current Visit: Yes Status: Acute Qualifiers: Involved coronary artery: unspecified coronary artery Qualified Code(s): I21.3 - ST elevation (STEMI) myocardial infarction of unspecified site Plan to address problem: Acute inferior STEMI s/p primary pci of mid-RCA with donovan postop doing well. (2) IDDM (insulin dependent diabetes mellitus) Current Visit: Yes Status: Chronic Plan to address problem: COnt home insulin and coverage (3) HTN (hypertension) Current Visit: Yes Status: Chronic Qualifiers: Hypertension type: essential hypertension Qualified Code(s): I10 - Essential (primary) hypertension Plan to address problem: Cont antihypertensives (4) HLD (hyperlipidemia) Current Visit: Yes Status: Chronic Qualifiers: Hyperlipidemia type: mixed hyperlipidemia Qualified Code(s): E78.2 - Mixed hyperlipidemia Plan to address problem: Cont statins (5) DVT prophylaxis Current Visit: Yes Status: Acute Plan to address problem: on Effient Subjective Date of service: 09/01/18 Principal diagnosis: Acute inferior STEMI Interval history: Chest pain free Objective - Constitutional Vitals: Vital Signs - 12hr 09/01/18 09/01/18 09/01/18 01:10 01:20 01:30 Temperature Pulse Rate 89 90 93 H Pulse Rate [ From Monitor] Respiratory 21 16 18 Rate Blood Pressure 121/64 121/64 121/64 O2 Sat by Pulse 100 100 100 Oximetry 09/01/18 09/01/18 09/01/18 01:40 01:50 02:00 Temperature Pulse Rate 90 95 H 89 Pulse Rate [ 89 From Monitor] Respiratory 18 14 17 Rate Blood Pressure 121/64 121/64 115/65 O2 Sat by Pulse 100 100 100 Oximetry 09/01/18 09/01/18 09/01/18 02:10 02:20 02:30 Temperature Pulse Rate 96 H 95 H 90 Pulse Rate [ From Monitor] Respiratory 17 13 21 Rate Blood Pressure 115/65 115/65 115/65 O2 Sat by Pulse 100 100 100 Oximetry 09/01/18 09/01/18 09/01/18 02:40 02:50 03:00 Temperature Pulse Rate 96 H 85 85 Pulse Rate [ From Monitor] Respiratory 18 25 H 17 Rate Blood Pressure 115/65 115/65 125/81 O2 Sat by Pulse 100 100 100 Oximetry 09/01/18 09/01/18 09/01/18 03:10 03:20 03:30 Temperature Pulse Rate 86 91 H 86 Pulse Rate [ From Monitor] Respiratory 18 19 18 Rate Blood Pressure 125/81 125/81 125/81 O2 Sat by Pulse 100 100 100 Oximetry 09/01/18 09/01/18 09/01/18 03:40 03:50 03:54 Temperature 98.0 F Pulse Rate 86 83 Pulse Rate [ From Monitor] Respiratory 18 19 Rate Blood Pressure 125/81 125/81 O2 Sat by Pulse 100 100 Oximetry 09/01/18 09/01/18 09/01/18 04:00 04:10 04:20 Temperature Pulse Rate 85 87 87 Pulse Rate [ 85 From Monitor] Respiratory 17 19 18 Rate Blood Pressure 123/79 123/79 123/79 O2 Sat by Pulse 100 100 100 Oximetry 09/01/18 09/01/18 09/01/18 04:30 04:40 04:50 Temperature Pulse Rate 87 97 H 95 H Pulse Rate [ From Monitor] Respiratory 19 17 19 Rate Blood Pressure 123/79 123/79 123/79 O2 Sat by Pulse 100 100 100 Oximetry 09/01/18 09/01/18 09/01/18 05:00 05:10 05:20 Temperature Pulse Rate 93 H 88 88 Pulse Rate [ From Monitor] Respiratory 21 18 18 Rate Blood Pressure 132/82 132/82 132/82 O2 Sat by Pulse 100 100 100 Oximetry 09/01/18 09/01/18 09/01/18 05:30 05:40 05:50 Temperature Pulse Rate 91 H 91 H 89 Pulse Rate [ From Monitor] Respiratory 19 19 17 Rate Blood Pressure 132/82 132/82 132/82 O2 Sat by Pulse 100 100 100 Oximetry 09/01/18 09/01/18 09/01/18 06:00 06:10 06:20 Temperature Pulse Rate 94 H 91 H 94 H Pulse Rate [ 94 H From Monitor] Respiratory 18 18 20 Rate Blood Pressure 132/82 108/65 108/65 O2 Sat by Pulse 100 100 100 Oximetry 09/01/18 09/01/18 09/01/18 06:30 06:40 06:50 Temperature Pulse Rate 103 H 95 H 98 H Pulse Rate [ From Monitor] Respiratory 16 17 18 Rate Blood Pressure 108/65 108/65 108/65 O2 Sat by Pulse 99 100 100 Oximetry 09/01/18 09/01/18 09/01/18 07:00 07:10 07:20 Temperature Pulse Rate 89 96 H 92 H Pulse Rate [ From Monitor] Respiratory 15 20 19 Rate Blood Pressure 104/59 104/59 104/59 O2 Sat by Pulse 100 100 100 Oximetry 09/01/18 09/01/18 09/01/18 07:30 07:40 07:50 Temperature Pulse Rate 94 H 88 88 Pulse Rate [ From Monitor] Respiratory 18 17 19 Rate Blood Pressure 104/59 104/59 104/59 O2 Sat by Pulse 100 100 100 Oximetry 09/01/18 09/01/18 09/01/18 07:56 08:00 08:10 Temperature 98.3 F Pulse Rate 89 90 Pulse Rate [ 89 From Monitor] Respiratory 21 17 Rate Blood Pressure 105/57 105/57 O2 Sat by Pulse 100 100 Oximetry 09/01/18 09/01/18 09/01/18 08:20 08:30 08:40 Temperature Pulse Rate 89 90 94 H Pulse Rate [ From Monitor] Respiratory 19 10 L 13 Rate Blood Pressure 105/57 105/57 105/57 O2 Sat by Pulse 100 100 100 Oximetry 09/01/18 09/01/18 09/01/18 08:50 09:00 09:09 Temperature Pulse Rate 95 H 91 H Pulse Rate [ From Monitor] Respiratory 12 18 Rate Blood Pressure 105/57 119/69 O2 Sat by Pulse 100 100 100 Oximetry 09/01/18 09/01/18 09/01/18 09:10 09:50 10:00 Temperature Pulse Rate 96 H 93 H Pulse Rate [ From Monitor] Respiratory 13 15 Rate Blood Pressure 119/69 119/69 107/60 O2 Sat by Pulse 100 50 L 100 Oximetry 09/01/18 09/01/18 09/01/18 10:10 10:20 10:30 Temperature Pulse Rate 97 H 104 H 96 H Pulse Rate [ From Monitor] Respiratory 13 16 24 Rate Blood Pressure 107/60 107/60 119/69 O2 Sat by Pulse 100 100 99 Oximetry 09/01/18 09/01/18 09/01/18 10:40 10:50 11:00 Temperature Pulse Rate 93 H 92 H 88 Pulse Rate [ From Monitor] Respiratory 14 14 16 Rate Blood Pressure 119/69 119/69 130/83 O2 Sat by Pulse 100 100 100 Oximetry 09/01/18 09/01/1819 11:10 11:20 11:30 Temperature Pulse Rate 88 83 85 Pulse Rate [ From Monitor] Respiratory 20 13 18 Rate Blood Pressure 130/83 130/83 130/83 O2 Sat by Pulse 100 100 100 Oximetry 09/01/18 09/01/18 09/01/18 11:40 11:50 12:00 Temperature 98.5 F Pulse Rate 83 81 Pulse Rate [ From Monitor] Respiratory 17 20 Rate Blood Pressure 130/83 130/83 O2 Sat by Pulse 100 100 Oximetry General appearance: Present: no acute distress, well-nourished - EENT Eyes: PERRL, EOM intact ENT: hearing intact, clear oral mucosa Ears: bilateral: normal - Neck Neck: supple, normal ROM - Respiratory Respiratory effort: normal Respiratory: bilateral: CTA - Breasts Breasts: normal - Cardiovascular Rhythm: regular Heart Sounds: Present: S1 & S2. Absent: gallop, rub Extremities: pulses intact, No edema, normal color, Full ROM - Gastrointestinal General gastrointestinal: Present: soft, non-tender, non-distended, normal bowel sounds - Genitourinary Female genitourinary: normal - Integumentary Integumentary: clear, warm, dry - Musculoskeletal Musculoskeletal: 1, strength equal bilaterally - Neurologic Neurologic: moves all extremities - Psychiatric Psychiatric: memory intact, appropriate mood/affect, intact judgment & insight - Allied health notes Allied health notes reviewed: nursing, case management - Labs CBC & Chem 7: 09/01/18 03:41 09/01/18 03:41 Labs: Abnormal lab results 08/31/18 08/31/18 08/31/18 Range/Units 16:07 16:07 16:36 Lymph % (Auto) (13.4-35.0) % [place] % (Auto) (0.0-7.3) % Glucose 255 H (65-100) mg/dL POC Glucose 275 H (70-105) Total Creatine Kinase (30-135) units/L CK-MB (CK-2) (0.0-4.0) ng/mL CK-MB (CK-2) Rel Index (0-4) Troponin T 0.698 H* D (0.00-0.029) ng/mL Albumin 3.6 L (3.9-5) g/dL 08/31/18 09/01/18 09/01/18 Range/Units 21:08 03:41 03:41 Lymph % (Auto) 38.3 H (13.4-35.0) % [place] % (Auto) 9.3 H (0.0-7.3) % Glucose 121 H (65-100) mg/dL POC Glucose 256 H (70-105) Total Creatine Kinase 331 H (30-135) units/L CK-MB (CK-2) 19.8 H (0.0-4.0) ng/mL CK-MB (CK-2) Rel Index 5.9 H (0-4) Troponin T 0.714 H* (0.00-0.029) ng/mL Albumin (3.9-5) g/dL 09/01/18 Range/Units 07:40 Lymph % (Auto) (13.4-35.0) % [place] % (Auto) (0.0-7.3) % Glucose (65-100) mg/dL POC Glucose 117 H (70-105) Total Creatine Kinase (30-135) units/L CK-MB (CK-2) (0.0-4.0) ng/mL CK-MB (CK-2) Rel Index (0-4) Troponin T (0.00-0.029) ng/mL Albumin (3.9-5) g/dL
--- NOTE | 2018-09-01 15:27 | Progress Note ---
Assessment and Plan Acute ST-elevation myocardial infarction. Morbid obesity, likely obstructive sleep apnea. History of diabetes. Tobacco use disorder - wean supplemental oxygen to keep sat's > 90% - continue antiplatelet therapy per cardiology rec's - re-introduce heart failure cocktail per medical coding manager re: MERRICK, BB (EF 20%) - weight loss counseled - tobacco abstinence again counseled at bedside - needs outpatient PSG / sleep clinic evaluation - continue lipitor / statin therapy - continue GI & VTE prophylaxis - advance diet - flu & pneumovax per RT - continue other care per attending / other clothing consultant's .... transfer to telemetry floor ... re-evaluate in am 7 prn I have spent ( >35 ) minutes with the patient w/ >50% of the time spent counseling and/or coordinating care for this patient. Counseling topics and/or how time was spent coordinating patient's care is outlined in the impression and plan above. Subjective Date of service: 09/01/18 Principal diagnosis: STEMI; Morbid obesity; likely JOSUÉ; DM II; Tobacco use disorder Interval history: Patient is seen today for: Acute ST-elevation myocardial infarction; Morbid obesity; likely obstructive sleep apnea; History of diabetes; Tobacco use disorder Seen and examined at bedside; 24hour events reviewed; nursing and respiratory care staff consulted; no adverse overnight events reported to me; resting peacefully in bed; denies acute chest pains or palpitations; No N/V/F/C; seen by medical coding manager and cleared for transfer to telemetry floor. Objective Vital Signs - 12hr 09/01/18 09/01/18 09/01/18 03:30 03:40 03:50 Temperature Pulse Rate 86 86 83 Pulse Rate [ From Monitor] Pulse Rate [ Sitting] Respiratory 18 18 19 Rate Blood Pressure 125/81 125/81 125/81 Blood Pressure [Sitting] O2 Sat by Pulse 100 100 100 Oximetry 09/01/18 09/01/18 09/01/18 03:54 04:00 04:10 Temperature 98.0 F Pulse Rate 85 87 Pulse Rate [ 85 From Monitor] Pulse Rate [ Sitting] Respiratory 17 19 Rate Blood Pressure 123/79 123/79 Blood Pressure [Sitting] O2 Sat by Pulse 100 100 Oximetry 09/01/18 09/01/18 09/01/18 04:20 04:30 04:40 Temperature Pulse Rate 87 87 97 H Pulse Rate [ From Monitor] Pulse Rate [ Sitting] Respiratory 18 19 17 Rate Blood Pressure 123/79 123/79 123/79 Blood Pressure [Sitting] O2 Sat by Pulse 100 100 100 Oximetry 09/01/18 09/01/18 09/01/18 04:50 05:00 05:10 Temperature Pulse Rate 95 H 93 H 88 Pulse Rate [ From Monitor] Pulse Rate [ Sitting] Respiratory 19 21 18 Rate Blood Pressure 123/79 132/82 132/82 Blood Pressure [Sitting] O2 Sat by Pulse 100 100 100 Oximetry 09/01/18 09/01/18 09/01/18 05:20 05:30 05:40 Temperature Pulse Rate 88 91 H 91 H Pulse Rate [ From Monitor] Pulse Rate [ Sitting] Respiratory 18 19 19 Rate Blood Pressure 132/82 132/82 132/82 Blood Pressure [Sitting] O2 Sat by Pulse 100 100 100 Oximetry 09/01/18 09/01/18 09/01/18 05:50 06:00 06:10 Temperature Pulse Rate 89 94 H 91 H Pulse Rate [ 94 H From Monitor] Pulse Rate [ Sitting] Respiratory 17 18 18 Rate Blood Pressure 132/82 132/82 108/65 Blood Pressure [Sitting] O2 Sat by Pulse 100 100 100 Oximetry 09/01/18 09/01/18 09/01/18 06:20 06:30 06:40 Temperature Pulse Rate 94 H 103 H 95 H Pulse Rate [ From Monitor] Pulse Rate [ Sitting] Respiratory 20 16 17 Rate Blood Pressure 108/65 108/65 108/65 Blood Pressure [Sitting] O2 Sat by Pulse 100 99 100 Oximetry 09/01/18 09/01/18 09/01/18 06:50 07:00 07:10 Temperature Pulse Rate 98 H 89 96 H Pulse Rate [ From Monitor] Pulse Rate [ Sitting] Respiratory 18 15 20 Rate Blood Pressure 108/65 104/59 104/59 Blood Pressure [Sitting] O2 Sat by Pulse 100 100 100 Oximetry 09/01/18 09/01/18 09/01/18 07:20 07:30 07:40 Temperature Pulse Rate 92 H 94 H 88 Pulse Rate [ From Monitor] Pulse Rate [ Sitting] Respiratory 19 18 17 Rate Blood Pressure 104/59 104/59 104/59 Blood Pressure [Sitting] O2 Sat by Pulse 100 100 100 Oximetry 09/01/18 09/01/18 09/01/18 07:50 07:56 08:00 Temperature 98.3 F Pulse Rate 88 89 Pulse Rate [ 89 From Monitor] Pulse Rate [ Sitting] Respiratory 19 21 Rate Blood Pressure 104/59 105/57 Blood Pressure [Sitting] O2 Sat by Pulse 100 100 Oximetry 09/01/18 09/01/18 09/01/18 08:10 08:20 08:30 Temperature Pulse Rate 90 89 90 Pulse Rate [ From Monitor] Pulse Rate [ Sitting] Respiratory 17 19 10 L Rate Blood Pressure 105/57 105/57 105/57 Blood Pressure [Sitting] O2 Sat by Pulse 100 100 100 Oximetry 09/01/18 09/01/18 09/01/18 08:40 08:50 09:00 Temperature Pulse Rate 94 H 95 H 91 H Pulse Rate [ From Monitor] Pulse Rate [ Sitting] Respiratory 13 12 18 Rate Blood Pressure 105/57 105/57 119/69 Blood Pressure [Sitting] O2 Sat by Pulse 100 100 100 Oximetry 09/01/18 09/01/18 09/01/18 09:09 09:10 09:50 Temperature Pulse Rate 96 H Pulse Rate [ From Monitor] Pulse Rate [ Sitting] Respiratory 13 Rate Blood Pressure 119/69 119/69 Blood Pressure [Sitting] O2 Sat by Pulse 100 100 50 L Oximetry 09/01/18 09/01/18 09/01/18 10:00 10:10 10:20 Temperature Pulse Rate 93 H 97 H 104 H Pulse Rate [ From Monitor] Pulse Rate [ Sitting] Respiratory 15 13 16 Rate Blood Pressure 107/60 107/60 107/60 Blood Pressure [Sitting] O2 Sat by Pulse 100 100 100 Oximetry 09/01/18 09/01/18 09/01/18 10:30 10:40 10:50 Temperature Pulse Rate 96 H 93 H 92 H Pulse Rate [ From Monitor] Pulse Rate [ Sitting] Respiratory 24 14 14 Rate Blood Pressure 119/69 119/69 119/69 Blood Pressure [Sitting] O2 Sat by Pulse 99 100 100 Oximetry 09/01/18 09/01/18 09/01/18 11:00 11:10 11:20 Temperature Pulse Rate 88 88 83 Pulse Rate [ From Monitor] Pulse Rate [ Sitting] Respiratory 16 20 13 Rate Blood Pressure 130/83 130/83 130/83 Blood Pressure [Sitting] O2 Sat by Pulse 100 100 100 Oximetry 09/01/18 09/01/18 09/01/18 11:30 11:40 11:50 Temperature Pulse Rate 85 83 81 Pulse Rate [ From Monitor] Pulse Rate [ Sitting] Respiratory 18 17 20 Rate Blood Pressure 130/83 130/83 130/83 Blood Pressure [Sitting] O2 Sat by Pulse 100 100 100 Oximetry 09/01/18 09/01/18 09/01/18 12:00 12:10 12:20 Temperature 98.5 F Pulse Rate 83 91 H 83 Pulse Rate [ 83 From Monitor] Pulse Rate [ Sitting] Respiratory 17 19 12 Rate Blood Pressure 130/83 112/66 112/66 Blood Pressure [Sitting] O2 Sat by Pulse 98 100 100 Oximetry 09/01/18 09/01/18 09/01/18 12:30 12:40 12:50 Temperature Pulse Rate 92 H 98 H 89 Pulse Rate [ From Monitor] Pulse Rate [ Sitting] Respiratory 23 27 H 23 Rate Blood Pressure 112/66 112/66 112/66 Blood Pressure [Sitting] O2 Sat by Pulse 99 99 96 Oximetry 09/01/18 09/01/18 09/01/18 13:00 13:10 13:20 Temperature Pulse Rate 85 84 89 Pulse Rate [ From Monitor] Pulse Rate [ Sitting] Respiratory 15 16 15 Rate Blood Pressure 130/79 130/79 130/79 Blood Pressure [Sitting] O2 Sat by Pulse 100 100 100 Oximetry 09/01/18 09/01/18 09/01/18 13:30 13:40 13:50 Temperature Pulse Rate 84 81 81 Pulse Rate [ From Monitor] Pulse Rate [ Sitting] Respiratory 13 13 15 Rate Blood Pressure 130/79 130/79 130/79 Blood Pressure [Sitting] O2 Sat by Pulse 100 100 100 Oximetry 09/01/18 09/01/18 09/01/18 14:00 14:11 14:21 Temperature Pulse Rate 79 79 81 Pulse Rate [ From Monitor] Pulse Rate [ Sitting] Respiratory 15 24 15 Rate Blood Pressure 130/79 107/64 Blood Pressure [Sitting] O2 Sat by Pulse 100 100 100 Oximetry 09/01/18 09/01/18 09/01/18 14:31 14:41 14:51 Temperature Pulse Rate 81 80 80 Pulse Rate [ From Monitor] Pulse Rate [ Sitting] Respiratory 11 L 14 16 Rate Blood Pressure 107/64 107/64 107/64 Blood Pressure [Sitting] O2 Sat by Pulse 100 100 100 Oximetry 09/01/18 09/01/18 09/01/18 15:00 15:01 15:11 Temperature Pulse Rate 88 84 Pulse Rate [ From Monitor] Pulse Rate [ 78 Sitting] Respiratory 16 13 Rate Blood Pressure 109/56 109/56 Blood Pressure 124/80 [Sitting] O2 Sat by Pulse 100 100 Oximetry Constitutional: no acute distress, alert Eyes: non-icteric ENT: oropharynx moist, other (mallampati 3) Neck: supple, no lymphadenopathy, no JVD, other (large neck circumference) Effort: mildly labored Ascultation: Bilateral: clear Percussion: Bilateral: not dull Cardiovascular: regular rate and rhythm, other (No R/M) Gastrointestinal: normoactive bowel sounds, soft, non-tender, non-distended, other (protuberant) Integumentary: normal Extremities: no cyanosis, no edema, pulses normal, no ischemia or petechiae Neurologic: normal mental status, non-focal exam, pupils equal and round, CN II- XII normal, motor strength normal and Psychiatric: mood appropriate, affect normal CBC and BMP: 09/01/18 03:41 09/01/18 03:41 ABG, PT/INR, D-dimer: PT/INR, D-dimer PT 12.9 Sec. (12.2-14.9) 08/31/18 01:55 INR 1.00 (0.87-1.13) 08/31/18 01:55 Abnormal lab findings: Abnormal Labs 08/31/18 08/31/18 08/31/18 01:55 01:55 01:55 Lymph % (Auto) 46.2 H [place] % (Auto) 8.6 H APTT 23.8 L Activated Clotting Time Glucose 318 H POC Glucose Total Creatine Kinase 140 H CK-MB (CK-2) CK-MB (CK-2) Rel Index Troponin T Albumin HDL Cholesterol 08/31/18 08/31/18 08/31/18 04:27 04:50 05:29 Lymph % (Auto) [place] % (Auto) APTT Activated Clotting Time 197 H 164 H Glucose POC Glucose Total Creatine Kinase 236 H CK-MB (CK-2) 6.7 H CK-MB (CK-2) Rel Index Troponin T 0.057 H D Albumin HDL Cholesterol 38 L 08/31/18 08/31/18 08/31/18 08:05 16:07 16:07 Lymph % (Auto) [place] % (Auto) APTT Activated Clotting Time Glucose 255 H POC Glucose Total Creatine Kinase 259 H CK-MB (CK-2) 16.8 H CK-MB (CK-2) Rel Index 6.4 H Troponin T 0.201 H* D 0.698 H* D Albumin 3.6 L HDL Cholesterol 08/31/18 08/31/18 09/01/18 16:36 21:08 03:41 Lymph % (Auto) 38.3 H [place] % (Auto) 9.3 H APTT Activated Clotting Time Glucose POC Glucose 275 H 256 H Total Creatine Kinase CK-MB (CK-2) CK-MB (CK-2) Rel Index Troponin T Albumin HDL Cholesterol 09/01/18 09/01/18 09/01/18 03:41 07:40 11:56 Lymph % (Auto) [place] % (Auto) APTT Activated Clotting Time Glucose 121 H POC Glucose 117 H 239 H Total Creatine Kinase 331 H CK-MB (CK-2) 19.8 H CK-MB (CK-2) Rel Index 5.9 H Troponin T 0.714 H* Albumin HDL Cholesterol Chest x-ray: image reviewed (borderline cardiomegaly; Left chest AICD) Allied health notes reviewed: nursing
[2018-09-01] MEDS: LANTUS SUB-Q SCH ×2 (22:11→22:14)
[2018-09-02] MEDS: HumuLIN R SUB-Q SCH ×4 (09:03→21:45)
[2018-09-02] MEDS: PEPCID PO SCH (09:41)
[2018-09-02] MEDS: ECOTRIN PO SCH (09:41)
[2018-09-02] MEDS: EFFIENT PO SCH (09:41)
--- NOTE | 2018-09-02 10:40 | Progress Note ---
Assessment and Plan 1. Acute inferior STEMI * s/p primary pci of mid-RCA with donovan 2. H/o of multiple MIs/PCIs 3. Known h/o ischemic CM * s/p icd 4. H/o chronic Htn - currently with hypotension 5. DM 6. Tobacco abuse Pt noted to be hypotensive this AM, BPs improved with NS bolus 250mL. No GDMT or diuretics at this time in setting of borderline low BPs. Cont DAPT. Pt c/o SOB with minimal activity and was noted to desaturate to 88% on room air while ambulating this morning, O2 reapplied. Pt with known ICMP, no apparent acutely decompensated HF. Will continue to monitor overnight. Await pulmonary reevaluation and recs. The patient has been seen in conjunction with Dr. Luis Quarles who agrees with the assessment and plan of care. - Patient Problems (1) STEMI (ST elevation myocardial infarction) Current Visit: Yes Status: Acute Qualifiers: Involved coronary artery: unspecified coronary artery Qualified Code(s): I21.3 - ST elevation (STEMI) myocardial infarction of unspecified site (2) CAD (coronary artery disease) Current Visit: Yes Status: Chronic (3) Stented coronary artery Current Visit: Yes Status: Chronic (4) Ischemic cardiomyopathy Current Visit: Yes Status: Chronic (5) Automatic implantable cardioverter-defibrillator in situ Current Visit: Yes Status: Chronic (6) Hypotension Current Visit: Yes Status: Acute (7) Diabetes Current Visit: Yes Status: Chronic (8) Tobacco use Current Visit: Yes Status: Chronic Subjective Date of service: 09/02/18 Principal diagnosis: Acute inferior STEMI Interval history: pt resting in bed, no chest pain, c/o SOB with minimal activity. BPs noted to be hypotensive this AM. Objective Last Vital Signs Temp 98.3 F 09/02/18 07:57 Pulse 61 09/02/18 07:57 Resp 18 09/02/18 07:57 BP 102/62 09/02/18 07:57 Pulse Ox 97 09/02/18 07:57 - Physical Examination General: No Apparent Distress HEENT: Positive: PERRL, Normocephaly, Mucus Membranes Moist Neck: Positive: neck supple, trachea midline Cardiac: Positive: Reg Rate and Rhythm, S1/S2 Lungs: Positive: Decreased Breath Sounds Neuro: Positive: Grossly Intact Abdomen: Positive: Soft. Negative: Tender Skin: Negative: Rash Musculoskeletal: No Pain Extremities: Absent: edema - Imaging and Cardiology EKG: report reviewed, image reviewed Echo: report reviewed (EF 20-25%, LV mild to mod dilated, pacemaker wire in RV, mild MR. ) - Telemetry EKG Rhythm: Sinus Rhythm - Allied health notes Allied health notes reviewed: nursing
[2018-09-02] MEDS ORDERED: NACL 0.9% 250ML 250 ML IV ONE (11:28)
--- NOTE | 2018-09-02 13:37 | Progress Note ---
Assessment and Plan Patient alert, awake. Resting on 2 litres O2. O2 saturation 96%. No complaint of chest pain or shortness of breath or cough. Complainining dizziness when she get up.Blood pressure 95/56. Could be orhostatic. - Patient Problems (1) Chest pain Current Visit: Yes Status: Acute Qualifiers: Chest pain type: unspecified Qualified Code(s): R07.9 - Chest pain, unspecified Plan to address problem: No complaint of chest pain at this time. Cardiology on consultation. (2) STEMI (ST elevation myocardial infarction) Current Visit: Yes Status: Acute Qualifiers: Involved coronary artery: unspecified coronary artery Qualified Code(s): I21.3 - ST elevation (STEMI) myocardial infarction of unspecified site Plan to address problem: Management as per cardiology. (3) Automatic implantable cardioverter-defibrillator in situ Current Visit: Yes Status: Chronic Plan to address problem: Management as per cardiology. (4) CAD (coronary artery disease) Current Visit: Yes Status: Chronic Plan to address problem: Management as per cardiology. (5) Diabetes Current Visit: Yes Status: Chronic Plan to address problem: Management as per primary care. (6) HTN (hypertension) Current Visit: Yes Status: Chronic Qualifiers: Hypertension type: essential hypertension Qualified Code(s): I10 - Essential (primary) hypertension Plan to address problem: Management as per primary care. (7) Tobacco use Current Visit: Yes Status: Chronic Plan to address problem: Counselled to stop smoking. (8) Morbid obesity with BMI of 45.0-49.9, adult Current Visit: Yes Status: Acute Plan to address problem: Recommend to loose weight. Sleep study as out patient. Subjective Date of service: 09/02/18 Principal diagnosis: Acute inferior STEMI Interval history: Patient alert, awake. Resting on 2 litres O2. O2 saturation 96%. No complaint of chest pain or shortness of breath or cough. Complainining dizziness when she get up.Blood pressure 95/56. Could be orhostatic. Objective Vital Signs - 12hr 09/02/18 09/02/18 09/02/18 03:49 04:20 04:21 Temperature 98.1 F Pulse Rate 80 81 Respiratory 18 Rate Blood Pressure 111/69 Blood Pressure [Left] O2 Sat by Pulse 100 Oximetry 09/02/18 09/02/18 09/02/18 07:57 10:00 11:31 Temperature 98.3 F Pulse Rate 61 87 Respiratory 18 19 Rate Blood Pressure 102/62 Blood Pressure 95/56 [Left] O2 Sat by Pulse 97 100 Oximetry Constitutional: no acute distress, alert Eyes: non-icteric ENT: oropharynx moist, other (mallampati 3) Neck: supple, no lymphadenopathy, no JVD, other (large neck circumference) Effort: mildly labored Percussion: Bilateral: not dull Cardiovascular: regular rate and rhythm, other (No R/M) Gastrointestinal: normoactive bowel sounds, soft, non-tender, non-distended, other (protuberant) Integumentary: normal Extremities: no cyanosis, no edema, pulses normal, no ischemia or petechiae Neurologic: normal mental status, non-focal exam, pupils equal and round, CN II- XII normal, motor strength normal and Psychiatric: mood appropriate, affect normal CBC and BMP: 09/01/18 03:41 09/01/18 03:41 ABG, PT/INR, D-dimer: PT/INR, D-dimer PT 12.9 Sec. (12.2-14.9) 08/31/18 01:55 INR 1.00 (0.87-1.13) 08/31/18 01:55 Abnormal lab findings: Abnormal Labs 08/31/18 08/31/18 08/31/18 01:55 01:55 01:55 Lymph % (Auto) 46.2 H [place] % (Auto) 8.6 H APTT 23.8 L Activated Clotting Time Glucose 318 H POC Glucose Total Creatine Kinase 140 H CK-MB (CK-2) CK-MB (CK-2) Rel Index Troponin T Albumin HDL Cholesterol 08/31/18 08/31/18 08/31/18 03:01 03:13 04:27 Lymph % (Auto) [place] % (Auto) APTT Activated Clotting Time 169 H 235 H 197 H Glucose POC Glucose Total Creatine Kinase CK-MB (CK-2) CK-MB (CK-2) Rel Index Troponin T Albumin HDL Cholesterol 08/31/18 08/31/18 08/31/18 04:50 05:29 08:05 Lymph % (Auto) [place] % (Auto) APTT Activated Clotting Time 164 H Glucose POC Glucose Total Creatine Kinase 236 H 259 H CK-MB (CK-2) 6.7 H 16.8 H CK-MB (CK-2) Rel Index 6.4 H Troponin T 0.057 H D 0.201 H* D Albumin HDL Cholesterol 38 L 08/31/18 08/31/18 08/31/18 16:07 16:07 16:36 Lymph % (Auto) [place] % (Auto) APTT Activated Clotting Time Glucose 255 H POC Glucose 275 H Total Creatine Kinase CK-MB (CK-2) CK-MB (CK-2) Rel Index Troponin T 0.698 H* D Albumin 3.6 L HDL Cholesterol 08/31/18 09/01/18 09/01/18 21:08 03:41 03:41 Lymph % (Auto) 38.3 H [place] % (Auto) 9.3 H APTT Activated Clotting Time Glucose 121 H POC Glucose 256 H Total Creatine Kinase 331 H CK-MB (CK-2) 19.8 H CK-MB (CK-2) Rel Index 5.9 H Troponin T 0.714 H* Albumin HDL Cholesterol 09/01/18 09/01/18 09/01/18 07:40 11:56 21:33 Lymph % (Auto) [place] % (Auto) APTT Activated Clotting Time Glucose POC Glucose 117 H 239 H 243 H Total Creatine Kinase CK-MB (CK-2) CK-MB (CK-2) Rel Index Troponin T Albumin HDL Cholesterol 09/02/18 09/02/18 08:45 13:02 Lymph % (Auto) [place] % (Auto) APTT Activated Clotting Time Glucose POC Glucose 128 H 158 H Total Creatine Kinase CK-MB (CK-2) CK-MB (CK-2) Rel Index Troponin T Albumin HDL Cholesterol Chest x-ray: report reviewed (Reported no acute abnormality.), image reviewed Allied health notes reviewed: nursing
--- NOTE | 2018-09-02 16:10 | Progress Note ---
Assessment and Plan - Patient Problems (1) STEMI (ST elevation myocardial infarction) Current Visit: Yes Status: Acute Qualifiers: Involved coronary artery: unspecified coronary artery Qualified Code(s): I21.3 - ST elevation (STEMI) myocardial infarction of unspecified site Plan to address problem: Acute inferior STEMI s/p primary pci of mid-RCA with donovan postop doing well. Pt noted to be hypotensive this AM, BPs improved with NS bolus 250mL. No GDMT or diuretics at this time in setting of borderline low BPs. Cont DAPT. Pt c/o SOB with minimal activity and was noted to desaturate to 88% on room air while ambulating this morning, O2 reapplied. Pt with known ICMP, no apparent acutely decompensated HF. Will continue to monitor overnight. Await pulmonary reevaluation and recs. (2) IDDM (insulin dependent diabetes mellitus) Current Visit: Yes Status: Chronic Plan to address problem: COnt home insulin and coverage (3) HTN (hypertension) Current Visit: Yes Status: Chronic Qualifiers: Hypertension type: essential hypertension Qualified Code(s): I10 - Essent ial (primary) hypertension Plan to address problem: Cont antihypertensives (4) HLD (hyperlipidemia) Current Visit: Yes Status: Chronic Qualifiers: Hyperlipidemia type: mixed hyperlipidemia Qualified Code(s): E78.2 - Mixed hyperlipidemia Plan to address problem: Cont statins (5) DVT prophylaxis Current Visit: Yes Status: Acute Plan to address problem: on Effient Subjective Date of service: 09/02/18 Principal diagnosis: Acute inferior STEMI Interval history: Chest pain free S/p pci Had Hypotensive episode today Otherwise doing well Objective - Constitutional Vitals: Vital Signs - 12hr 09/02/18 09/02/18 09/02/18 04:20 04:21 07:57 Temperature 98.1 F 98.3 F Pulse Rate 81 61 Pulse Rate [ From Monitor] Pulse Rate [ Left Dorsalis Pedis] Pulse Rate [ Left Radial] Pulse Rate [ Right Dorsalis Pedis] Pulse Rate [ Right Radial] Respiratory 18 18 Rate Blood Pressure 111/69 102/62 Blood Pressure [Left] O2 Sat by Pulse 100 97 Oximetry 09/02/18 09/02/18 09/02/18 10:00 11:31 14:00 Temperature Pulse Rate 87 Pulse Rate [ 87 From Monitor] Pulse Rate [ 87 Left Dorsalis Pedis] Pulse Rate [ 87 Left Radial] Pulse Rate [ 87 Right Dorsalis Pedis] Pulse Rate [ 87 Right Radial] Respiratory 19 19 Rate Blood Pressure Blood Pressure 95/56 [Left] O2 Sat by Pulse 100 96 Oximetry 09/02/18 14:59 Temperature Pulse Rate 83 Pulse Rate [ From Monitor] Pulse Rate [ Left Dorsalis Pedis] Pulse Rate [ Left Radial] Pulse Rate [ Right Dorsalis Pedis] Pulse Rate [ Right Radial] Respiratory Rate Blood Pressure Blood Pressure [Left] O2 Sat by Pulse Oximetry General appearance: Present: no acute distress, well-nourished - EENT Eyes: PERRL, EOM intact ENT: hearing intact, clear oral mucosa Ears: bilateral: normal - Neck Neck: supple, normal ROM - Respiratory Respiratory effort: normal Respiratory: bilateral: CTA - Breasts Breasts: normal - Cardiovascular Heart rate: 76 Rhythm: regular Heart Sounds: Present: S1 & S2. Absent: gallop, rub Extremities: pulses intact, No edema, normal color, Full ROM - Gastrointestinal General gastrointestinal: Present: soft, non-tender, non-distended, normal bowel sounds - Genitourinary Female genitourinary: normal - Integumentary Integumentary: clear, warm, dry - Musculoskeletal Musculoskeletal: 1, strength equal bilaterally - Neurologic Neurologic: moves all extremities - Psychiatric Psychiatric: memory intact, appropriate mood/affect, intact judgment & insight - Labs CBC & Chem 7: 09/01/18 03:41 09/01/18 03:41 Labs: Abnormal lab results 08/31/18 08/31/18 09/01/18 Range/Units 03:01 03:13 21:33 Activated Clotting Time 169 H 235 H (74-137) POC Glucose 243 H (70-105) NT-Pro-B Natriuret Pep (0-450) pg/mL 09/02/18 09/02/18 09/02/18 Range/Units 08:45 13:02 13:06 Activated Clotting Time (74-137) POC Glucose 128 H 158 H (70-105) NT-Pro-B Natriuret Pep 476.3 H (0-450) pg/mL
[2018-09-02] MEDS ORDERED: ZOFRAN IV PRN (21:11)
[2018-09-02] MEDS: LANTUS SUB-Q SCH (21:46)
[2018-09-02] MEDS ORDERED: ULTRAM PO ONE (22:39)
[2018-09-03 06:05] LABS: Basophils % (Auto) 0.3 % (0.0-1.8); Eosinophils # (Auto) 0.2 K/mm3 (0.0-0.4); Eosinophils % (Auto) 2.7 % (0.0-4.3); Hematocrit 35.3 % (30.3-42.9); Hemoglobin 11.4 gm/dl (10.1-14.3); Lymphocytes # (Auto) 2.4 K/mm3 (1.2-5.4); Lymphocytes % (Auto) 39.5 % (13.4-35.0); Mean Corpuscular HGB Conc 32 % (30-34); Mean Corpuscular Volume 90 fl (79-97); Monocytes # (Auto) 0.6 K/mm3 (0.0-0.8); Monocytes % (Auto) 9.8 % (0.0-7.3); Platelet Count 276 K/mm3 (140-440); Red Blood Count 3.93 M/mm3 (3.65-5.03); Red Cell Distribution Width 13.3 % (13.2-15.2)
[2018-09-03 06:40] LABS: Alanine Aminotransferase 15 units/L (7-56); Albumin 3.3 g/dL (3.9-5); BUN/Creatinine Ratio 13; Blood Urea Nitrogen 9 mg/dL (7-17); Calcium 8.7 mg/dL (8.4-10.2); Hemolysis Index 8
[2018-09-03 08:42] VITALS: BP 101/62
[2018-09-03] MEDS: HumuLIN R SUB-Q SCH (08:43)
--- NOTE | 2018-09-03 09:32 | Progress Note ---
Assessment and Plan 1. Acute inferior STEMI * s/p primary pci of mid-RCA with donovan 2. H/o of multiple MIs/PCIs 3. Known h/o ischemic CM * s/p icd 4. H/o chronic Htn - currently with hypotension 5. DM 6. Tobacco abuse Pt clinically improved this AM, states she feels ready for discharge home today. Pt may discharge home from cardiology standpoint. Cont DAPT and statin, cont to hold home GDMT and diuretics in setting of borderline BPs. Pt already has follow up appt with her primary network cabler at [facility] on , 09/05/2018. She will readdress resuming GDMT and diuretics at this appointment. The patient has been seen in conjunction with Dr. Luis Quarles who agrees with the assessment and plan of care. - Patient Problems (1) STEMI (ST elevation myocardial infarction) Current Visit: Yes Status: Acute Qualifiers: Involved coronary artery: unspecified coronary artery Qualified Code(s): I21.3 - ST elevation (STEMI) myocardial infarction of unspecified site (2) CAD (coronary artery disease) Current Visit: Yes Status: Chronic (3) Stented coronary artery Current Visit: Yes Status: Chronic (4) Ischemic cardiomyopathy Current Visit: Yes Status: Chronic (5) Automatic implantable cardioverter-defibrillator in situ Current Visit: Yes Status: Chronic (6) Hypotension Current Visit: Yes Status: Acute (7) Diabetes Current Visit: Yes Status: Chronic (8) Tobacco use Current Visit: Yes Status: Chronic Subjective Date of service: 09/03/18 Principal diagnosis: Acute inferior STEMI Interval history: pt resting in bed, states she is feeling better today, BPs borderline low but stable overnight. pt ambulated this AM on room air, states dizziness is improved. Objective Last Vital Signs Temp 98.1 F 09/03/18 08:39 Pulse 89 09/03/18 08:39 Resp 18 09/03/18 08:39 BP 101/62 09/03/18 08:39 Pulse Ox 96 09/03/18 08:39 - Physical Examination General: No Apparent Distress HEENT: Positive: PERRL, Normocephaly, Mucus Membranes Moist Neck: Positive: neck supple, trachea midline Cardiac: Positive: Reg Rate and Rhythm, S1/S2 Lungs: Positive: Decreased Breath Sounds Neuro: Positive: Grossly Intact Abdomen: Positive: Soft. Negative: Tender Skin: Negative: Rash Musculoskeletal: No Pain Extremities: Absent: edema - Labs and Meds Cardiac Enzymes 09/03/18 Range/Units 04:11 AST 17 (5-40) units/L CBC 09/03/18 Range/Units 04:11 WBC 6.1 (4.5-11.0) K/mm3 RBC 3.93 (3.65-5.03) M/mm3 Hgb 11.4 (10.1-14.3) gm/dl Hct 35.3 (30.3-42.9) % Plt Count 276 (140-440) K/mm3 Lymph # 2.4 (1.2-5.4) K/mm3 [place] # 0.6 (0.0-0.8) K/mm3 Eos # 0.2 (0.0-0.4) K/mm3 Baso # 0.0 (0.0-0.1) K/mm3 Comprehensive Metabolic Panel 09/03/18 Range/Units 04:11 Sodium 141 (137-145) mmol/L Potassium 4.0 (3.6-5.0) mmol/L Chloride 108.1 H (98-107) mmol/L Carbon Dioxide 23 (22-30) mmol/L BUN 9 (7-17) mg/dL Creatinine 0.7 (0.7-1.2) mg/dL Glucose 183 H (65-100) mg/dL Calcium 8.7 (8.4-10.2) mg/dL AST 17 (5-40) units/L ALT 15 (7-56) units/L Alkaline Phosphatase 98 (35-129) units/L Total Protein 6.6 (6.3-8.2) g/dL Albumin 3.3 L (3.9-5) g/dL - Imaging and Cardiology EKG: report reviewed, image reviewed Echo: report reviewed (EF 20-25%, LV mild to mod dilated, pacemaker wire in RV, mild MR. ) - Allied health notes Allied health notes reviewed: nursing
--- NOTE | 2018-09-03 09:33 | Discharge Summary ---
Providers - Providers Date of Admission: 08/31/18 03:38 Date of discharge: 09/03/18 Attending physician: CHINMAY VALIENTE 08/31/18 Consult to Cardiac Rehabilitation [CONS] Routine Reason For Exam: post pci 08/31/18 03:33 Consult to Physician [CONS] Routine Comment: Consulting Provider: RAMOS HAMM Physician Instructions: Reason For Exam: CCU admit 08/31/18 11:23 Consult to Physician [CONS] Routine Comment: Consulting Provider: ANNY LOYA Physician Instructions: Reason For Exam: medical management 08/31/18 12:14 Consult to Dietitian/Nutrition [CONS] Routine Physician Instructions: Reason For Exam: Reason for Consult: Diet education 09/03/18 09:19 Physical Therapy Evaluation and Treat [CONS] Routine Comment: Reason For Exam: physical deconditioning [facility] Reason for admission: STEMI Condition: Critical Pertinent studies: [facility] with PCI and echo - see reports Procedures: [facility] with PCI and echo - see reports Hospital course: Pt is a 38 YO female with past medical history of CAD s/p multiple MIs/PCIs, ICMP, AICD in situ, HTN, DM, tobacco use, obesity. She presented on 08/31/2018 with acute inferior STEMI and subsequently underwent PCI of mid-RCA with JEMAL. Echo showed EF 20-25%, LV mild to mod dilated, pacemaker wire in RV, mild MR. She was noted to have hypotension and dizziness requiring NS bolus during admission and thus her home GDMT and diuretics were held. She is medically stable for discharge home today. Will cont DAPT and statin, cont to hold home in setting of borderline BPs. Pt already has follow up appt with her primary hose sprayer at [facility] on , 09/05/2018. She will readdress resuming GDMT and diuretics at this appointment. Disposition: - TO HOME OR SELFCARE - Discharge Diagnoses (1) STEMI (ST elevation myocardial infarction) Status: Acute Qualifiers: Involved coronary artery: unspecified coronary artery Qualified Code(s): I21.3 - ST elevation (STEMI) myocardial infarction of unspecified site (2) CAD (coronary artery disease) Status: Chronic (3) Stented coronary artery Status: Chronic (4) Ischemic cardiomyopathy Status: Chronic (5) Automatic implantable cardioverter-defibrillator in situ Status: Chronic (6) Hypotension Status: Acute (7) Diabetes Status: Chronic (8) Tobacco use Status: Chronic Core Measure Documentation - Palliative Care Palliative Care/ Comfort Measures: Not Applicable - Core Measures Any of the following diagnoses?: acute RI - Acute RI Discharge Requirements Aspirin at discharge: Yes MERRICK/ARB for LVSD if EF <40%: No Reason for no MERRICK/ARB: Hypotension Beta jacobo at discharge: No Reason for no beta jacobo on DC: Hypotension Statin for LDL = or >100 mg/dl on DC: Yes Exam - Constitutional Vitals: Temp Pulse Resp BP Pulse Ox 98.1 F 89 18 101/62 96 09/03/18 08:39 09/03/18 08:39 09/03/18 08:39 09/03/18 08:39 09/03/18 08:39 General appearance: Present: no acute distress - EENT Eyes: Present: PERRL, EOM intact ENT: hearing intact, clear oral mucosa, dentition normal - Neck Neck: Present: supple, normal ROM - Respiratory Respiratory: bilateral: CTA - Cardiovascular Rhythm: regular Heart Sounds: Present: S1 & S2 - Extremities Extremities: no ischemia, pulses intact, pulses symmetrical Peripheral Pulses: within normal limits - Abdominal General gastrointestinal: Present: soft, non-tender - Integumentary Integumentary: Present: clear, warm, dry - Musculoskeletal Musculoskeletal: strength equal bilaterally Plan Activity: no restrictions Diet: low fat, low cholesterol, low salt Wound: open to air, keep clean and dry, per your surgeon's advice Follow up with: NORM MCCOY MD [Primary Care Provider] - 3-5 Days Prescriptions: RX: Prasugrel [Effient] 10 mg PO QDAY #30 tablet
[2018-09-03] MEDS: ECOTRIN PO SCH (10:00)
[2018-09-03] MEDS: EFFIENT PO SCH (10:01)
[2018-09-03] MEDS: PEPCID PO SCH (10:01)
--- NOTE | 2018-09-04 08:21 | Event Note ---
Date: 09/03/18 Pt was seen and examined. She was discharged by the cardiology team and discharge summary documented by the team.
== END 2018-09-03 12:21 | disposition home or self-care (01) | DRG 246 ==
LOC: ED 01:47 → CC1 03:38 → 4A 09-01 17:37
PROVIDERS: ADMIT Internal Medicine; ATTEND Internal Medicine
PROC: 4A023N7 Measurement of Cardiac Sampling and Pressure, Left Heart, Percutaneous Approach (ICD-10-PCS; principal; 2018-08-31)
PROC: 027034Z Dilation of Coronary Artery, One Artery with Drug-eluting Intraluminal Device, Percutaneous Approach (ICD-10-PCS; 2018-08-31)
PROC: B2111ZZ Fluoroscopy of Multiple Coronary Arteries using Low Osmolar Contrast (ICD-10-PCS; 2018-08-31)
PROC: B2151ZZ Fluoroscopy of Left Heart using Low Osmolar Contrast (ICD-10-PCS; 2018-08-31)
PROC: B240ZZ3 Ultrasonography of Single Coronary Artery, Intravascular (ICD-10-PCS; 2018-08-31)
DX: I21.19 ST elevation (STEMI) myocardial infarction involving other coronary artery of inferior wall (principal); I50.31 Acute diastolic (congestive) heart failure; Z68.42 Body mass index [BMI] 45.0-49.9, adult; E78.2 Mixed hyperlipidemia; E66.01 Morbid (severe) obesity due to excess calories; I10 Essential (primary) hypertension; I25.5 Ischemic cardiomyopathy; I25.10 Atherosclerotic heart disease of native coronary artery without angina pectoris; E11.9 Type 2 diabetes mellitus without complications; F17.200 Nicotine dependence, unspecified, uncomplicated; I95.9 Hypotension, unspecified; Z71.6 Tobacco abuse counseling; Z88.1 Allergy status to other antibiotic agents; Z79.899 Other long term (current) drug therapy; Z95.810 Presence of automatic (implantable) cardiac defibrillator; Z79.4 Long term (current) use of insulin; Z95.5 Presence of coronary angioplasty implant and graft; Z82.49 Family history of ischemic heart disease and other diseases of the circulatory system; Z83.3 Family history of diabetes mellitus; I25.2 Old myocardial infarction
CPT/HCPCS: 36415; 71045; 80048; 80053; 80061; 82550; 82553; 82962; 83880; 84484; 85025; 85027; 85347; 85610; 85730; 86850; 86900; 86901; 92941; 92978; 93005; 93010; 93306; 93458; 94760; 96374; 96375; 99406; G0378; A9270-GY; C1725; C1753; C1769; C1874; C1887; C1894; C9606; J0171; J0461; J1644; J1815; J1940; J2001; J2250; J2370; J2405; J3010; J7030; J7050; Q9967